=== PATIENT | male | born 1980 | race Caucasian/White ===

== ENCOUNTER 2016-03-07 02:07 | Emergency (ER) | payer OTHER ==
[2016-03-07 02:16] VITALS: BP 125/77; PULSE 98; RESP 16; TEMP 99.5
--- NOTE | 2016-03-07 02:39 | ED ---
General Adult HPI - General Chief complaint: Urogenital Stated complaint: lump on groin [facility] Time Seen by Provider: 03/07/16 02:18 Source: patient, RN notes reviewed Mode of arrival: ambulatory Limitations: no limitations - History of Present Illness Initial comments: Patient 35-year-old male who presents emergency room today with chief complaint of injury to the right groin. He does admit that he was at work just prior to arrival lifting a heavy foam roll. States felt instant pain when he went to move this in the right groin area. States having some discomfort in this area. Patient denies any other complaints or symptoms. Patient denies any recent fever, chills, shortness of breath, chest pain, back pain, abdominal pain, nausea or vomiting, numbness or tingling, dysuria or hematuria, constipation or diarrhea, headaches or visual changes, or any other complaints. - Related Data Previous Rx's Medication Instructions Recorded Ibuprofen [Motrin] 800 mg PO Q6HR PRN #30 tab 03/07/16 Allergies Allergy/AdvReac Type Severity Reaction Status Date / Time No Known Allergies Allergy Verified 03/07/16 02:16 Review of Systems ROS Statement: Those systems with pertinent positive or pertinent negative responses have been documented in the HPI. ROS Other: All systems not noted in ROS Statement are negative. Past Medical History Past Medical History: No Reported History History of Any Multi-Drug Resistant Organisms: None Reported Past Surgical History: No Surgical Hx Reported Past Psychological History: Anxiety Smoking Status: Current every day smoker Past Alcohol Use History: Daily, Heavy Past Drug Use History: None Reported General Exam - General Exam Comments Initial Comments: General: The patient is awake and alert, in no distress, and does not appear acutely ill. Eye: Pupils are equal, round and reactive to light, extra-ocular movements are intact. No nystagmus. There is normal conjunctiva bilaterally. No signs of icterus. Ears, nose, mouth and throat: There are moist mucous membranes and no oral lesions. Neck: The neck is supple, there is no tenderness or JVD. Cardiovascular: There is a regular rate and rhythm. No murmur, rub or gallop is appreciated. Respiratory: Lungs are clear to auscultation, respirations are non-labored, breath sounds are equal. No wheezes, stridor, rales, or rhonchi. Gastrointestinal: Soft, non-distended, non-tender abdomen without masses or organomegaly noted. There is no rebound or guarding present. No CVA tenderness. Bowel sounds are unremarkable. Musculoskeletal: Normal ROM, no tenderness. Strength 5/5. Sensation intact. Pulses equal bilaterally 2+. Neurological: A&O x 3. CN II-XII intact, There are no obvious motor or sensory deficits. Coordination appears grossly intact. Speech is normal. Skin: Skin is warm and dry and no rashes or lesions are noted. Psychiatric: Cooperative, appropriate mood & affect, normal judgment. : Patient does have small palpable bump located to the right inguinal area. Mild tenderness on exam. Limitations: no limitations Course Vital Signs 03/07/16 02:12 Temperature 99.5 F Pulse Rate 98 Respiratory 16 Rate Blood Pressure 125/77 O2 Sat by Pulse 99 Oximetry Medical Decision Making - Medical Decision Making Case discussed in detail with attending physician Dr. Muñoz. Patient will be referred to employee health. Advised no heavy lifting greater than 15 pounds. Advised return for any other concerns. Disposition Clinical Impression: Groin strain Disposition: HOME SELF-CARE Condition: Good Instructions: Groin Strain (ED) Additional Instructions: Please follow-up with employee health as discussed. Please no heavy lifting greater than 15 pounds. Please return to emergency room if any symptoms increase worsen or for other concerns. Prescriptions: Ibuprofen [Motrin] 800 mg PO Q6HR PRN #30 tab PRN Reason: Pain Time of Disposition: 02:38
== END 2016-03-07 02:57 | disposition home or self-care (01) ==
LOC: EC 02:07
DX: S39.011A Strain of muscle, fascia and tendon of abdomen, initial encounter (principal); F17.200 Nicotine dependence, unspecified, uncomplicated; X50.0XXA Overexertion from strenuous movement or load, initial encounter; Y99.0 Civilian activity done for income or pay
CPT/HCPCS: 99283

== ENCOUNTER → 2016-03-10 | Outpatient (CLI) | payer OTHER ==
--- NOTE | 2016-03-10 16:03 | XR ---
EXAMINATION TYPE: XR Hip Complete RT 2 views DATE OF EXAM: 03/10/2016 3:56 PM COMPARISON: NONE HISTORY: Pain There is no evidence of erosive change or acute fracture. Benign cysts are seen in the right femoral neck. Femoral head is somewhat nonspherical. Impression 1. No evidence of acute fracture or dislocation. Mild hypertrophic change of the acetabulum. This can occasionally be seen with femoral acetabular impingement. Correlate clinically.
== END | disposition home or self-care (01) ==
LOC: RADXRMAIN 15:32
PROVIDERS: ATTEND Emergency Medicine
DX: S73.101A Unspecified sprain of right hip, initial encounter (principal); M89.351 Hypertrophy of bone, right femur
CPT/HCPCS: 73502

== ENCOUNTER 2016-11-05 14:21 | Emergency (ER) | payer OTHER ==
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
--- NOTE | 2016-11-05 15:12 | XR ---
EXAMINATION TYPE: XR shoulder complete RT DATE OF EXAM: 11/05/2016 COMPARISON: NONE HISTORY: Pain TECHNIQUE: Three views are submitted. FINDINGS: The osseous structures are intact. There is no acute fracture or dislocation. The AC joint is maint ained. IMPRESSION: 1. No acute process.
--- NOTE | 2016-11-05 15:13 | XR ---
EXAMINATION TYPE: XR chest 1V DATE OF EXAM: 11/05/2016 COMPARISON: NONE HISTORY: Pain TECHNIQUE: Single frontal view of the chest is obtained. FINDINGS: There is no focal air space opacity, pleural effusion, or pneumothorax seen. The cardiac silhouette size is within normal limits. The osseous structures are intact. IMPRESSION: No acute process.
--- NOTE | 2016-11-05 15:17 | XR ---
EXAMINATION TYPE: XR hand complete RT DATE OF EXAM: 11/05/2016 COMPARISON: NONE HISTORY: Pain TECHNIQUE: Three views are submitted. FINDINGS: There is a displaced fracture involving the base first metacarpal. Remaining osseous structures intac t. IMPRESSION: 1. Displaced fracture base first metacarpal. Articular extension not excluded.
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
[2016-11-05] MEDS ORDERED: HYDROcodone/APAP 5-325MG 1 EACH TAB PO STA (15:31)
[2016-11-05 15:51] VITALS: BP 139/75; PULSE 49; RESP 18; TEMP 97.4
== END 2016-11-05 15:50 | disposition home or self-care (01) ==
LOC: EC 14:21
DX: S62.231A Other displaced fracture of base of first metacarpal bone, right hand, initial encounter for closed fracture (principal); S80.811A Abrasion, right lower leg, initial encounter; F17.200 Nicotine dependence, unspecified, uncomplicated; V49.50XA Passenger injured in collision with unspecified motor vehicles in traffic accident, initial encounter; Y92.410 Unspecified street and highway as the place of occurrence of the external cause
CPT/HCPCS: 29125; 70450; 71010; 72125; 99285

== ENCOUNTER 2016-11-13 17:59 | Inpatient (IN) | payer OTHER ==
[2016-11-13] MEDS ORDERED: RX INFO: IV CONTRAST WAS GIVEN 1 EACH MISC MISCELLANE PRN (18:30)
[2016-11-13] MEDS ORDERED: SODIUM CHLORIDE 0.9% 2,000 ML IV ONE (18:30)
[2016-11-13 19:06] LABS: Basophils % (A) 0 %; CH 29.9; CHCM 32.7; Eosinophils # (A) 0.1 k/uL (0-0.7); Eosinophils % (A) 1 %; HCT 34.3 % (39.0-53.0); HDW 2.39; HGB 11.3 gm/dL (13.0-17.5); Luc # (Auto) 0.04; Luc % (Auto) 0; Lymphocytes # (A) 0.4 k/uL (1.0-4.8); Lymphocytes % (A) 3 %; MCH 30.2 pg (25.0-35.0); MCHC 32.9 g/dL (31.0-37.0); MCV 91.7 fL (80.0-100.0); Mean Platelet Volume 7.5; Monocytes # (A) 0.6 k/uL (0-1.0); Monocytes % (A) 4 %; Neutrophils # (A) 11.9 k/uL (1.3-7.7); Neutrophils % (A) 91 %; RBC 3.74 m/uL (4.30-5.90); RDW 12.9 % (11.5-15.5); WBC (Perox) 13.04
[2016-11-13] MEDS ORDERED: ONDANSETRON 4 MG/2 ML VIAL IVP STA (19:12)
[2016-11-13] MEDS ORDERED: MORPHINE SULFATE 2 MG/ML SYRINGE IVP ONE (19:12)
[2016-11-13] MEDS ORDERED: LORazepam 2 MG/ML INJ IV STA (19:12)
[2016-11-13] MEDS ORDERED: VANCOMYCIN IV PER PHARMACY 1 EACH MISC MISCELLANE PRN (19:13)
[2016-11-13] MEDS ORDERED: PIPERACILLIN-TAZOBACTAM 3.375 GM in DEXTROSE/WATER 1 50ML.BAG IVPB STA (19:13)
[2016-11-13 19:16] LABS: ALT 35 U/L (21-72); AST 21 U/L (17-59); Alkaline Phosphatase 254 U/L (38-126); Anion Gap 12 mmol/L; Blood Urea Nitrogen 19 mg/dL (9-20); Calcium 8.3 mg/dL (8.4-10.2); Carbon Dioxide 20 mmol/L (22-30); Chloride 99 mmol/L (98-107); Glucose 124 mg/dL (74-99); Non-African American GFR(MDRD) >60 (>60 ml/min/1.73 sqM); Potassium 3.8 mmol/L (3.5-5.1); Sodium 131 mmol/L (137-145); Total Bilirubin 0.3 mg/dL (0.2-1.3); Total Protein 5.3 g/dL (6.3-8.2)
--- NOTE | 2016-11-13 19:27 | ED ---
Skin/Abscess/FB HPI - General Chief complaint: Skin/Abscess/Foreign Body Stated complaint: Shivering, Cyst on leg Time Seen by Provider: 11/13/16 18:23 Source: patient, RN notes reviewed Mode of arrival: wheelchair Limitations: no limitations - History of Present Illness Initial comments: 36-year-old male presents emergency Department chief complaint abscess, infection. Patient states it started only 3-4 days ago. Patient states that there is redness that extends down his left thigh. Patient states that he has had some skin infections past but this is most extensive. Patient states she's been having fever and chills. Patient states that it is very painful. Patient states it is open and draining at this time. Patient states that he has been taking some Bactrim at home over the last couple days. - Related Data Home Medications Medication Instructions Recorded Confirmed Ibuprofen [Motrin] 600 mg PO Q6HR PRN 11/13/16 11/13/16 Allergies Allergy/AdvReac Type Severity Reaction Status Date / Time No Known Allergies Allergy Verified 11/13/16 18:57 Review of Systems ROS Statement: Those systems with pertinent positive or pertinent negative responses have been documented in the HPI. ROS Other: All systems not noted in ROS Statement are negative. Past Medical History Past Medical History: No Reported History History of Any Multi-Drug Resistant Organisms: None Reported Past Surgical History: No Surgical Hx Reported Past Psychological History: Anxiety Smoking Status: Current every day smoker Past Alcohol Use History: None Reported Past Drug Use History: None Reported General Exam Limitations: no limitations General appearance: alert, in no apparent distress, anxious Head exam: Present: atraumatic, normocephalic, normal inspection Neck exam: Present: normal inspection, full ROM. Absent: tenderness, meningismus, lymphadenopathy Respiratory exam: Present: normal lung sounds bilaterally. Absent: respiratory distress, wheezes, rales, rhonchi, stridor Cardiovascular Exam: Present: normal rhythm, tachycardia, normal heart sounds. Absent: systolic murmur, diastolic murmur, rubs, gallop, clicks GI/Abdominal exam: Present: soft, normal bowel sounds. Absent: distended, tenderness, guarding, rebound, rigid Skin exam: Present: warm, dry, other (Extensive swelling, erythema is nonswollen left inguinal region with erythema extends down to the mid thigh) Course Vital Signs 11/13/16 11/13/16 11/13/16 18:01 19:04 19:52 Temperature 99.4 F 100.3 F H Pulse Rate 138 H 99 Respiratory 18 18 Rate Blood Pressure 159/77 109/58 O2 Sat by Pulse 97 93 L Oximetry Medical Decision Making - Lab Data Result diagrams: 11/13/16 18:50 11/13/16 18:50 Lab Results 11/13/16 11/13/16 11/13/16 Range/Units 18:50 18:50 18:50 WBC 13.0 H (3.8-10.6) k/uL RBC 3.74 L (4.30-5.90) m/uL Hgb 11.3 L (13.0-17.5) gm/dL Hct 34.3 L (39.0-53.0) % MCV 91.7 (80.0-100.0) fL MCH 30.2 (25.0-35.0) pg MCHC 32.9 (31.0-37.0) g/dL RDW 12.9 (11.5-15.5) % Plt Count 168 (150-450) k/uL Neutrophils % 91 % Lymphocytes % 3 % Monocytes % 4 % Eosinophils % 1 % Basophils % 0 % Neutrophils # 11.9 H (1.3-7.7) k/uL Lymphocytes # 0.4 L (1.0-4.8) k/uL Monocytes # 0.6 (0-1.0) k/uL Eosinophils # 0.1 (0-0.7) k/uL Basophils # 0.0 (0-0.2) k/uL Sodium 131 L (137-145) mmol/L Potassium 3.8 (3.5-5.1) mmol/L Chloride 99 (98-107) mmol/L Carbon Dioxide 20 L (22-30) mmol/L Anion Gap 12 mmol/L BUN 19 (9-20) mg/dL Creatinine 1.10 (0.66-1.25) mg/dL Est GFR (MDRD) Af Amer >60 (>60 ml/min/1.73 sqM) Est GFR (MDRD) Non-Af >60 (>60 ml/min/1.73 sqM) Glucose 124 H (74-99) mg/dL Plasma Lactic Acid Matt 3.0 H* (0.7-2.0) mmol/L Calcium 8.3 L (8.4-10.2) mg/dL Total Bilirubin 0.3 (0.2-1.3) mg/dL AST 21 (17-59) U/L ALT 35 (21-72) U/L Alkaline Phosphatase 254 H (38-126) U/L Total Protein 5.3 L (6.3-8.2) g/dL Albumin 2.5 L (3.5-5.0) g/dL Disposition Clinical Impression: Abscess of groin, left, Cellulitis of left leg, Failure of outpatient treatment Disposition: ADMITTED IP TO THIS HOSP Condition: Fair Referrals: None,Stated [Primary Care Provider] - 1-2 days
[2016-11-13] MEDS ORDERED: VANCOMYCIN 1,250 MG in SODIUM CHLORIDE 0.9% 250 ML IVPB STA (19:29)
--- NOTE | 2016-11-13 20:01 | CT ---
EXAMINATION TYPE: CT pelvis w con DATE OF EXAM: 11/13/2016 REFERENCE: NONE HISTORY: abscess/ pain HISTORY: Left inguinal pain, redness and swelling. Elevated WBC's. REFERENCE: NONE CT DLP: 707.00 mGy Automated exposure control for dose reduction was used. TECHNIQUE: Helical acquisition through the abdomen and pelvis was obtained following the oral ingesti on of without Oral Contrast and following intravenous administration of 100 mL of Omnipaque 300. The data was reformatted in axial, coronal and sagittal projections. FINDINGS: The gallbladder is contracted. Visualized visceral structures are otherwise unremarkable. Limited views of the large and small bowel are unremarkable. The bladder is unremarkable. There is induration of the proximal thigh on the left. There is a 7.0 x 4.9 x 1.4 cm fluid collection in the medial thigh on the left. Although no air is noted within it this would BE compatible with an abscess. There is a second fluid collection in the anterior thigh measuring 12 x 6.4 x 1.9 cm. This appears to communicate with the other fluid collection. No bony lesion is seen. IMPRESSION: LARGE FLUID COLLECTION INVOLVING THE ANTERIOR AND MEDIAL LEFT THIGH WITH SURROUNDING INDURATION AND S WELLING. THIS WOULD BE COMPATIBLE WITH A LARGE ABSCESS.
[2016-11-13] MEDS ORDERED: ONDANSETRON 4 MG/2 ML VIAL IVP PRN (20:03)
[2016-11-13] MEDS ORDERED: ACETAMINOPHEN TAB 325 MG TAB PO PRN (20:03)
[2016-11-13] MEDS ORDERED: MORPHINE SULFATE 4 MG/ML SYRINGE IV PRN (20:03)
[2016-11-13] MEDS ORDERED: NALOXONE 0.4 MG/ML 1 ML VIAL IV PRN (20:03)
[2016-11-13 20:24] LABS: Appearance,Urine Clear (Clear); Bilirubin,Urine Negative (Negative); Glucose,Urine (UA) Negative (Negative); Ketones,Urine Negative (Negative); Leukocyte Esterase,Urine Negative (Negative); Nitrite,Urine Negative (Negative); Protein,Urine Trace (Negative); Specific Gravity,Urine 1.025 (1.001-1.035); UA Billing (MACRO vs. MICRO) CHEM
[2016-11-13] MEDS: SODIUM CHLORIDE 0.9% 1,000 ML IV SCH (22:29)
[2016-11-13] MEDS: HYDROmorphone 1 MG/ML 1 ML SYRINGE IVP PRN (22:37)
[2016-11-13] MEDS: LORazepam 0.5 MG TAB PO PRN (22:38)
[2016-11-13] MEDS ORDERED: SODIUM CHLORIDE 0.9% 1,000 ML IV ONE (23:50)
[2016-11-14] MEDS: HYDROmorphone 1 MG/ML 1 ML SYRINGE IVP PRN ×7 (02:18→22:01)
[2016-11-14] MEDS: IBUPROFEN 400 MG TAB PO PRN ×2 (02:33→07:33)
[2016-11-14] MEDS ORDERED: VANCOMYCIN 1,250 MG in SODIUM CHLORIDE 0.9% 250 ML IVPB SCH (06:00)
[2016-11-14] MEDS: SODIUM CHLORIDE 0.9% 1,000 ML IV SCH (06:10)
[2016-11-14] MEDS: LORazepam 0.5 MG TAB PO PRN ×2 (09:42→20:32)
[2016-11-14 10:10] LABS: Anion Gap 9 mmol/L; Blood Urea Nitrogen 15 mg/dL (9-20); Calcium 8.3 mg/dL (8.4-10.2); Carbon Dioxide 19 mmol/L (22-30); Chloride 112 mmol/L (98-107); Glucose 96 mg/dL (74-99); Non-African American GFR(MDRD) >60 (>60 ml/min/1.73 sqM); Sodium 140 mmol/L (137-145)
[2016-11-14 10:17] LABS: Potassium 4.2 mmol/L (3.5-5.1)
[2016-11-14] MEDS: SODIUM CHLORIDE 0.45% 1,000 ML IV SCH (14:09)
[2016-11-14] MEDS: KETOROLAC 30 MG/ML 1 ML VIAL IVP PRN ×2 (14:09→20:32)
[2016-11-14] MEDS: FAMOTIDINE 20 MG TAB PO SCH ×2 (14:52→20:38)
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
[2016-11-14] MEDS ORDERED: IV FLUID CONTINUATION 1,000 ML IV ONE ×2 (15:50)
[2016-11-14] MEDS: VANCOMYCIN 1,250 MG in SODIUM CHLORIDE 0.9% 250 ML IVPB SCH ×2 (16:05→17:16)
[2016-11-14] MEDS ORDERED: MIDAZOLAM 2 MG/2 ML VIAL IVP ONE ×2 (16:34→18:20)
[2016-11-14] MEDS ORDERED: ONDANSETRON 4 MG/2 ML VIAL ONE (17:19)
[2016-11-14] MEDS ORDERED: MIDAZOLAM 2 MG/2 ML VIAL ONE (17:19)
[2016-11-14] MEDS ORDERED: fentaNYL (PF) 50 MCG/ML 2 ML AMP ONE (17:19)
[2016-11-14] MEDS ORDERED: MORPHINE SULFATE 10 MG/ML SYRINGE ONE (17:19)
[2016-11-14] MEDS ORDERED: MEPERIDINE 50 MG/ML SYRINGE ONE (17:19)
[2016-11-14] MEDS ORDERED: LIDOCAINE 1% INJ 10MG/ML (20 ML MDV) ONE (17:19)
[2016-11-14] MEDS ORDERED: PROPOFOL 10 MG/ML 20 ML VIAL IV ONE (17:19)
[2016-11-14] MEDS ORDERED: LACTATED RINGERS 1,000 ML IV ONE (18:00)
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
[2016-11-15] MEDS: SODIUM CHLORIDE 0.45% 1,000 ML IV SCH ×3 (01:00→20:09)
[2016-11-15] MEDS: VANCOMYCIN 1,250 MG in SODIUM CHLORIDE 0.9% 250 ML IVPB SCH ×4 (01:00→22:27)
[2016-11-15] MEDS: HYDROmorphone 1 MG/ML 1 ML SYRINGE IVP PRN ×7 (01:03→21:01)
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
--- NOTE | 2016-11-15 01:12 | P.OP ---
Date of Procedure: 11/14/16 Preoperative Diagnosis: Left thigh and right axillary abscess Postoperative Diagnosis: Same Procedure(s) Performed: Incision and drainage of left thigh and right axillary abscess Anesthesia: MIKIE Surgeon: Elan Garland Pathology: other (Cultures were sent) Condition: stable Disposition: floor Indications for Procedure: Patient has multiple abscesses which required incision and drainage Operative Findings: Large amount of purulent fluid and left thigh and right axilla Description of Procedure: Patient was brought to the operative suite remained in supine position and underwent anesthesia per Department of anesthesia he was then prepped and draped in usual sterile fashion timeout was performed correct patient and correct procedure correct site was verified. A 8 cm incision was then made directly over the area of fluctuance in his anterior left thigh a large amount of present fluid was excised approximately 300 mL. Cultures were taken and sent. This area was then copiously irrigated and packed with Kerlix gauze. Hemostasis was achieved. Attention was turned to the right axillary abscess which was incised in a similar fashion with an incision 3 cm. 50 mL of brown fluid was expressed. All loculations were broken up. In the wound was packed with gauze. Sterile dressings were applied patient tolerated the procedure well there is no apparent complications
[2016-11-15] MEDS: KETOROLAC 30 MG/ML 1 ML VIAL IVP PRN ×3 (02:32→20:09)
[2016-11-15] MEDS ORDERED: VANCOMYCIN TROUGH DUE 1 EACH MISC MISCELLANE ONE (06:00)
[2016-11-15] MEDS: FAMOTIDINE 20 MG TAB PO SCH ×2 (07:54→21:01)
[2016-11-15 08:20] LABS: CH 29.4; CHCM 31.9; HCT 31.9 % (39.0-53.0); HDW 2.45; HGB 10.4 gm/dL (13.0-17.5); MCH 30.1 pg (25.0-35.0); MCHC 32.5 g/dL (31.0-37.0); MCV 92.5 fL (80.0-100.0); Mean Platelet Volume 8.3; RBC 3.45 m/uL (4.30-5.90); RDW 13.1 % (11.5-15.5); WBC 13.6 k/uL (3.8-10.6)
[2016-11-15 09:29] LABS: Anion Gap 12 mmol/L; Calcium 8.3 mg/dL (8.4-10.2); Carbon Dioxide 17 mmol/L (22-30); Chloride 113 mmol/L (98-107); Glucose 91 mg/dL (74-99); Non-African American GFR(MDRD) >60 (>60 ml/min/1.73 sqM); Sodium 142 mmol/L (137-145)
[2016-11-15 09:35] LABS: Blood Urea Nitrogen 15 mg/dL (9-20); Potassium 5.3 mmol/L (3.5-5.1)
--- NOTE | 2016-11-15 12:24 | P.PN ---
Subjective Patient was admitted for abscess in the left thigh area as well as right axillary abscess patient had a large abscess in the left thigh and inguinal area which was drained wound cultures are showing gram-positive cocci patient pain significantly improved. Constitutional: Denied any fatigue denied any fever. Cardio vascular: denied any chest pain, palpitations Gastrointestinal denied any nausea vomiting Pulmonary: Denied any shortness of breath cough Neurologic denied any new focal deficits Objective - Vital Signs Vital signs: Vital Signs Temp 98.4 F 11/15/16 07:00 Pulse 72 11/15/16 07:00 Resp 16 11/15/16 07:00 BP 118/76 11/15/16 07:00 Pulse Ox 98 11/15/16 07:00 Intake & Output 11/14/16 11/15/16 11/15/16 18:59 06:59 18:59 Intake Total 1125 300 Output Total 950 1050 Balance 175 -750 Intake: IV 1125 Oral 300 Output: Urine 900 1050 Estimated Blood Loss 50 Other: Voiding Method Urinal # Voids 2 - Exam GENERAL: The patient is alert and oriented x3, not in any acute distress. Well developed, well nourished. HEENT: Pupils are round and equally reacting to light. EOMI. No scleral icterus. No conjunctival pallor. Normocephalic, atraumatic. No pharyngeal erythema. No thyromegaly. CARDIOVASCULAR: S1 and S2 present. No murmurs, rubs, or gallops. PULMONARY: Chest is clear to auscultation, no wheezing or crackles. ABDOMEN: Soft, nontender, nondistended, normoactive bowel sounds. No palpable organomegaly. MUSCULOSKELETAL: No joint swelling or deformity. EXTREMITIES: No cyanosis, clubbing, or pedal edema. NEUROLOGICAL: Gross neurological examination did not reveal any focal deficits. SKIN: She and is status post drainage of left inguinal and thigh area and right axillary area - Labs CBC & Chem 7: 11/15/16 07:59 11/15/16 07:59 Labs: Abnormal Lab Results - Last 24 Hours (Table) 11/15/16 11/15/16 Range/Units 07:59 07:59 WBC 13.6 H (3.8-10.6) k/uL RBC 3.45 L (4.30-5.90) m/uL Hgb 10.4 L (13.0-17.5) gm/dL Hct 31.9 L (39.0-53.0) % Potassium 5.3 H (3.5-5.1) mmol/L Chloride 113 H (98-107) mmol/L Carbon Dioxide 17 L (22-30) mmol/L Calcium 8.3 L (8.4-10.2) mg/dL Microbiology - Last 24 Hours (Table) 11/14/16 17:58 Gram Stain - Preliminary Axilla - Right Wound Culture - Preliminary 11/14/16 17:58 Gram Stain - Preliminary Thigh - Left Wound Culture - Preliminary 11/14/16 17:58 Anaerobic Culture - Preliminary Thigh - Left 11/14/16 17:58 Anaerobic Culture - Preliminary Axilla - Right 11/13/16 20:13 Urine Culture - Final Urine,Voided 11/13/16 18:50 Blood Culture - Preliminary Blood No Growth after 24 hours Assessment and Plan Plan: #1 sepsis, severe: Secondary to left thigh abscess and right axillary abscess for which patient will need incision and drainages continue with IV vancomycin IV fluids. Patient is status post incision and drainage #2 hypovolemic hyponatremia: Secondary to sepsis and patient will be continued on IV fluids. #3 acute renal failure: Fairly stable at this point of time continue with IV fluids #4 hyperchloremia due to IV normal saline switched to half-normal saline.
--- NOTE | 2016-11-15 14:39 | P.PN ---
Subjective Progress Note Date: 11/15/16 Principal diagnosis: Abscess left anterior thigh and right axilla Patient is markedly improved today. He states the pain is much better. He has no other complaints Objective - Vital Signs Vital signs: Vital Signs Temp 98.4 F 11/15/16 07:00 Pulse 72 11/15/16 07:00 Resp 16 11/15/16 07:00 BP 118/76 11/15/16 07:00 Pulse Ox 98 11/15/16 07:00 Intake & Output 11/14/16 11/15/16 11/15/16 18:59 06:59 18:59 Intake Total 1125 300 Output Total 950 1050 Balance 175 -750 Intake: IV 1125 Oral 300 Output: Urine 900 1050 Estimated Blood Loss 50 Other: Voiding Method Urinal # Voids 2 - Constitutional General appearance: Present: cooperative - EENT Eyes: Present: EOMI - Respiratory Respiratory: bilateral: CTA - Cardiovascular Rhythm: regular - Gastrointestinal Gastrointestinal Comment(s): Soft nontender nondistended - Integumentary Integumentary Comment(s): Left anterior thigh erythema markedly improved wound packed with Kerlix. Right axilla erythema improved wound packed with gauze. - Psychiatric Psychiatric: Present: A&O x's 3 - Labs CBC & Chem 7: 11/15/16 07:59 11/15/16 07:59 Labs: Abnormal Lab Results - Last 24 Hours (Table) 11/15/16 11/15/16 Range/Units 07:59 07:59 WBC 13.6 H (3.8-10.6) k/uL RBC 3.45 L (4.30-5.90) m/uL Hgb 10.4 L (13.0-17.5) gm/dL Hct 31.9 L (39.0-53.0) % Potassium 5.3 H (3.5-5.1) mmol/L Chloride 113 H (98-107) mmol/L Carbon Dioxide 17 L (22-30) mmol/L Calcium 8.3 L (8.4-10.2) mg/dL Microbiology - Last 24 Hours (Table) 11/14/16 17:58 Gram Stain - Preliminary Axilla - Right Wound Culture - Preliminary 11/14/16 17:58 Gram Stain - Preliminary Thigh - Left Wound Culture - Preliminary 11/14/16 17:58 Anaerobic Culture - Preliminary Thigh - Left 11/14/16 17:58 Anaerobic Culture - Preliminary Axilla - Right 11/13/16 20:13 Urine Culture - Final Urine,Voided 11/13/16 18:50 Blood Culture - Preliminary Blood No Growth after 24 hours Assessment and Plan (1) Abscess of right axilla Status: Acute (2) Abscess of groin, left Status: Acute (3) Cellulitis of left leg Status: Acute
[2016-11-16] MEDS: LORazepam 0.5 MG TAB PO PRN ×2 (02:21→20:50)
[2016-11-16] MEDS: HYDROmorphone 1 MG/ML 1 ML SYRINGE IVP PRN ×8 (02:21→23:06)
[2016-11-16] MEDS: SODIUM CHLORIDE 0.45% 1,000 ML IV SCH (05:55)
[2016-11-16] MEDS ORDERED: VANCOMYCIN TROUGH DUE 1 EACH MISC MISCELLANE ONE (06:00)
[2016-11-16] MEDS: VANCOMYCIN 1,250 MG in SODIUM CHLORIDE 0.9% 250 ML IVPB SCH (07:07)
[2016-11-16 08:01] LABS: CH 29.5; CHCM 32.6; HCT 32.6 % (39.0-53.0); HDW 2.41; HGB 10.8 gm/dL (13.0-17.5); MCH 30.1 pg (25.0-35.0); MCHC 33.1 g/dL (31.0-37.0); MCV 90.7 fL (80.0-100.0); Mean Platelet Volume 8.2; RBC 3.59 m/uL (4.30-5.90); WBC 9.6 k/uL (3.8-10.6)
[2016-11-16] MEDS: FAMOTIDINE 20 MG TAB PO SCH ×2 (08:11→20:55)
[2016-11-16] MEDS: KETOROLAC 30 MG/ML 1 ML VIAL IVP PRN ×2 (08:12→17:06)
[2016-11-16 08:22] LABS: Anion Gap 9 mmol/L; Blood Urea Nitrogen 17 mg/dL (9-20); Calcium 8.2 mg/dL (8.4-10.2); Carbon Dioxide 19 mmol/L (22-30); Chloride 110 mmol/L (98-107); Glucose 112 mg/dL (74-99); Non-African American GFR(MDRD) >60 (>60 ml/min/1.73 sqM); Sodium 138 mmol/L (137-145)
--- NOTE | 2016-11-16 11:57 | P.PN ---
Subjective Patient was admitted for abscess in the left thigh area as well as right axillary abscess patient had a large abscess in the left thigh and inguinal area which was drained wound cultures are showing gram-positive cocci patient pain significantly improved. 11/16/2016 patient pain is much better feeling well awaiting wound cultures, wanted to go home Constitutional: Denied any fatigue denied any fever. Cardio vascular: denied any chest pain, palpitations Gastrointestinal denied any nausea vomiting Pulmonary: Denied any shortness of breath cough Neurologic denied any new focal deficits Objective - Vital Signs Vital signs: Vital Signs Temp 98.5 F 11/16/16 07:00 Pulse 64 11/16/16 07:00 Resp 16 11/16/16 07:00 BP 130/80 11/16/16 07:00 Pulse Ox 99 11/16/16 07:00 Intake & Output 11/15/16 11/16/16 11/16/16 18:59 06:59 18:59 Intake Total 1050 Output Total 600 Balance 1050 -600 Intake: IV 1050 Sodium Chloride 0.45% 1, 800 000 ml @ 100 mls/hr IV . Q10H [facility] Rx#:[id number] Vancomycin 1,250 mg In 250 Sodium Chloride 0.9% 250 ml @ 125 mls/hr IVPB Q8H [facility] Rx#:[id number] Output: Urine 600 Other: Voiding Method Urinal # Voids 1 1 - Exam GENERAL: The patient is alert and oriented x3, not in any acute distress. Well developed, well nourished. HEENT: Pupils are round and equally reacting to light. EOMI. No scleral icterus. No conjunctival pallor. Normocephalic, atraumatic. No pharyngeal erythema. No thyromegaly. CARDIOVASCULAR: S1 and S2 present. No murmurs, rubs, or gallops. PULMONARY: Chest is clear to auscultation, no wheezing or crackles. ABDOMEN: Soft, nontender, nondistended, normoactive bowel sounds. No palpable organomegaly. MUSCULOSKELETAL: No joint swelling or deformity. EXTREMITIES: No cyanosis, clubbing, or pedal edema. NEUROLOGICAL: Gross neurological examination did not reveal any focal deficits. SKIN: She and is status post drainage of left inguinal and thigh area and right axillary area - Labs CBC & Chem 7: 11/16/16 07:05 11/16/16 07:05 Labs: Abnormal Lab Results - Last 24 Hours (Table) 11/16/16 11/16/16 Range/Units 07:05 07:05 RBC 3.59 L (4.30-5.90) m/uL Hgb 10.8 L (13.0-17.5) gm/dL Hct 32.6 L (39.0-53.0) % Chloride 110 H (98-107) mmol/L Carbon Dioxide 19 L (22-30) mmol/L Glucose 112 H (74-99) mg/dL Calcium 8.2 L (8.4-10.2) mg/dL Microbiology - Last 24 Hours (Table) 11/14/16 17:58 Gram Stain - Preliminary Axilla - Right Wound Culture - Preliminary Presumptive MRSA 11/14/16 17:58 Gram Stain - Preliminary Thigh - Left Wound Culture - Preliminary Presumptive MRSA 11/13/16 18:50 Blood Culture - Preliminary Blood No Growth after 48 hours Assessment and Plan Plan: #1 sepsis, severe: Secondary to left thigh abscess and right axillary abscess for which patient will need incision and drainages continue with IV vancomycin IV fluids. Patient is status post incision and drainage. Leukocytosis improved #2 hypovolemic hyponatremia: Secondary to sepsis improved now probably IV fluids can be discontinued secondary to hyperchloremia #3 acute renal failure: Fairly stable at this point of time continue with IV fluids #4 hyperchloremia due to IV fluids which are being discontinued at this time. #5 hyperkalemia due to hemolysis which resolved at this point of time
--- NOTE | 2016-11-16 13:58 | P.PN ---
Subjective Progress Note Date: 11/16/16 Principal diagnosis: Abscess left anterior thigh and right axilla Patient is feeling better. He states the pain is much better. He has no other complaints Objective - Vital Signs Vital signs: Vital Signs Temp 98.5 F 11/16/16 07:00 Pulse 64 11/16/16 07:00 Resp 16 11/16/16 07:00 BP 130/80 11/16/16 07:00 Pulse Ox 99 11/16/16 07:00 Intake & Output 11/15/16 11/16/16 11/16/16 18:59 06:59 18:59 Intake Total 1050 Output Total 600 Balance 1050 -600 Intake: IV 1050 Sodium Chloride 0.45% 1, 800 000 ml @ 100 mls/hr IV . Q10H [facility] Rx#:[id number] Vancomycin 1,250 mg In 250 Sodium Chloride 0.9% 250 ml @ 125 mls/hr IVPB Q8H [facility] Rx#:[id number] Output: Urine 600 Other: Voiding Method Urinal # Voids 1 1 - Constitutional General appearance: Present: cooperative - Respiratory Details: Nonlabored breathing - Cardiovascular Rhythm: regular - Gastrointestinal Gastrointestinal Comment(s): Soft nontender nondistended - Integumentary Integumentary Comment(s): Left anterior thigh wound is packed there is still a small amount of erythema Howards improved. draining purulent fluid Right axilla improved erythema draining some purulent fluid - Psychiatric Psychiatric: Present: A&O x's 3 - Labs CBC & Chem 7: 11/16/16 07:05 11/16/16 07:05 Labs: Abnormal Lab Results - Last 24 Hours (Table) 11/16/16 11/16/16 Range/Units 07:05 07:05 RBC 3.59 L (4.30-5.90) m/uL Hgb 10.8 L (13.0-17.5) gm/dL Hct 32.6 L (39.0-53.0) % Chloride 110 H (98-107) mmol/L Carbon Dioxide 19 L (22-30) mmol/L Glucose 112 H (74-99) mg/dL Calcium 8.2 L (8.4-10.2) mg/dL Microbiology - Last 24 Hours (Table) 11/14/16 17:58 Gram Stain - Preliminary Axilla - Right Wound Culture - Preliminary Presumptive MRSA 11/14/16 17:58 Gram Stain - Preliminary Thigh - Left Wound Culture - Preliminary Presumptive MRSA 11/13/16 18:50 Blood Culture - Preliminary Blood No Growth after 48 hours Assessment and Plan (1) Abscess of right axilla Status: Acute (2) Abscess of groin, left Status: Acute (3) Cellulitis of left leg Status: Acute Plan: Patient is doing well he may shower remove packing in the shower and allow the incisions to drain. Continue wet to dry dressings. Continue antibiotics per ID and medical management per primary. Erythema is improved and the wounds are still draining.
[2016-11-16] MEDS: VANCOMYCIN 1,000 MG in SODIUM CHLORIDE 0.9% 250 ML IVPB SCH ×2 (14:06→23:09)
[2016-11-17] MEDS: HYDROmorphone 1 MG/ML 1 ML SYRINGE IVP PRN ×8 (02:06→23:18)
[2016-11-17] MEDS: LORazepam 0.5 MG TAB PO PRN ×2 (04:25→11:41)
--- NOTE | 2016-11-17 07:00 | PN ---
PROGRESS NOTE DATE OF SERVICE: 11/16/2016. REASON FOR FOLLOW UP: Left thigh, right axillary MRSA abscess. INTERVAL HISTORY: The patient is afebrile, has been breathing comfortably. Denies any chest pain or shortness of breath or abdominal pain. Pain to the left thigh area is currently controlled. EXAMINATION: Blood pressure 163/82 with a pulse of 75, temperature of 98.2. He is 98% on room air. General description is a middle-aged male lying in bed in no distress. Respiratory system unlabored breathing, clear to auscultation anteriorly. Heart S1, S2. Regular rate and rhythm. No tenderness. Left thigh wound is currently dressed up. No obvious drainage on the dressing. LABS: White count normalized to 9.6 with a BUN of 17, creatinine 0.80. Vancomycin trough therapeutic wound culture with MRSA. DIAGNOSTIC IMPRESSION AND PLAN: Patient with Methicillin-resistant Staphylococcus aureus left thigh and right axillary abscess status post drainage of this abscess. The patient will continue vancomycin, pharmacy to dose. Depending on the clinical response will determine discharge antibiotics. Continue supportive care. MMODL / IJN: [id number] / MTDD
[2016-11-17] MEDS: FAMOTIDINE 20 MG TAB PO SCH ×2 (07:50→22:10)
[2016-11-17] MEDS: VANCOMYCIN 1,000 MG in SODIUM CHLORIDE 0.9% 250 ML IVPB SCH ×2 (07:54→14:52)
[2016-11-17 10:01] LABS: Anion Gap 10 mmol/L; Blood Urea Nitrogen 18 mg/dL (9-20); Calcium 8.2 mg/dL (8.4-10.2); Carbon Dioxide 20 mmol/L (22-30); Chloride 113 mmol/L (98-107); Glucose 116 mg/dL (74-99); Non-African American GFR(MDRD) >60 (>60 ml/min/1.73 sqM); Sodium 143 mmol/L (137-145)
[2016-11-17 10:16] LABS: Potassium 6.7 mmol/L (3.5-5.1)
[2016-11-17] MEDS: KETOROLAC 30 MG/ML 1 ML VIAL IVP PRN (11:40)
--- NOTE | 2016-11-17 15:43 | P.PN ---
Subjective Patient was admitted for abscess in the left thigh area as well as right axillary abscess patient had a large abscess in the left thigh and inguinal area which was drained wound cultures are showing gram-positive cocci patient pain significantly improved. 11/16/2016 patient pain is much better feeling well awaiting wound cultures, wanted to go home 11/17/2016 Infectious disease is recommending 2 more days of IV antibiotics. Patient's frequency of hydromorphone will be changed to every 4 probably try to avoid this medication as much as possible. Constitutional: Denied any fatigue denied any fever. Cardio vascular: denied any chest pain, palpitations Gastrointestinal denied any nausea vomiting Pulmonary: Denied any shortness of breath cough Neurologic denied any new focal deficits Objective - Vital Signs Vital signs: Vital Signs Temp 99.1 F 11/17/16 15:00 Pulse 61 11/17/16 15:00 Resp 16 11/17/16 15:00 BP 133/73 11/17/16 15:00 Pulse Ox 97 11/17/16 15:00 Intake & Output 11/16/16 11/17/16 11/17/16 18:59 06:59 18:59 Intake Total 950 Output Total 400 525 Balance 950 -400 -525 Intake: IV 950 Sodium Chloride 0.45% 1, 700 000 ml @ 100 mls/hr IV . Q10H [facility] Rx#:[id number] Vancomycin 1,250 mg In 250 Sodium Chloride 0.9% 250 ml @ 125 mls/hr IVPB Q8H [facility] Rx#:[id number] Output: Urine 400 525 Other: # Voids 1 1 2 # Bowel Movements 0 - Exam GENERAL: The patient is alert and oriented x3, not in any acute distress. Well developed, well nourished. HEENT: Pupils are round and equally reacting to light. EOMI. No scleral icterus. No conjunctival pallor. Normocephalic, atraumatic. No pharyngeal erythema. No thyromegaly. CARDIOVASCULAR: S1 and S2 present. No murmurs, rubs, or gallops. PULMONARY: Chest is clear to auscultation, no wheezing or crackles. ABDOMEN: Soft, nontender, nondistended, normoactive bowel sounds. No palpable organomegaly. MUSCULOSKELETAL: No joint swelling or deformity. EXTREMITIES: No cyanosis, clubbing, or pedal edema. NEUROLOGICAL: Gross neurological examination did not reveal any focal deficits. SKIN: She and is status post drainage of left inguinal and thigh area and right axillary area - Labs CBC & Chem 7: 11/16/16 07:05 11/17/16 12:05 Labs: Abnormal Lab Results - Last 24 Hours (Table) 11/17/16 11/17/16 Range/Units 08:52 12:05 Potassium 6.7 H* 6.3 H* (3.5-5.1) mmol/L Chloride 113 H (98-107) mmol/L Carbon Dioxide 20 L (22-30) mmol/L Glucose 116 H (74-99) mg/dL Calcium 8.2 L (8.4-10.2) mg/dL Microbiology - Last 24 Hours (Table) 11/14/16 17:58 Anaerobic Culture - Preliminary Thigh - Left 11/14/16 17:58 Anaerobic Culture - Preliminary Axilla - Right 11/13/16 18:50 Blood Culture - Preliminary Blood No Growth after 72 hours 11/14/16 17:58 Gram Stain - Final Axilla - Right Wound Culture - Final Methicillin resist S. aureus 11/14/16 17:58 Gram Stain - Final Thigh - Left Wound Culture - Final Methicillin resist S. aureus Assessment and Plan Plan: #1 sepsis, severe: Secondary to left thigh abscess and right axillary abscess for which patient will need incision and drainages continue with IV vancomycin IV fluids. Patient is status post incision and drainage. Leukocytosis improved #2 hypovolemic hyponatremia: Secondary to sepsis improved now probably IV fluids can be discontinued secondary to hyperchloremia #3 acute renal failure: Improved now #4 hyperchloremia due to IV fluids which are being discontinued at this time. #5 hyperkalemia due to hemolysis repeat basic metabolic profile tomorrow
--- NOTE | 2016-11-17 18:04 | P.PN ---
Subjective Progress Note Date: 11/17/16 Principal diagnosis: Abscess left anterior thigh and right axilla Improved today patient feeling well no complaints Objective - Vital Signs Vital signs: Vital Signs Temp 99.1 F 11/17/16 15:00 Pulse 61 11/17/16 15:00 Resp 16 11/17/16 15:00 BP 133/73 11/17/16 15:00 Pulse Ox 97 11/17/16 15:00 Intake & Output 11/16/16 11/17/16 11/17/16 18:59 06:59 18:59 Intake Total 950 Output Total 400 525 Balance 950 -400 -525 Intake: IV 950 Sodium Chloride 0.45% 1, 700 000 ml @ 100 mls/hr IV . Q10H [facility] Rx#:[id number] Vancomycin 1,250 mg In 250 Sodium Chloride 0.9% 250 ml @ 125 mls/hr IVPB Q8H [facility] Rx#:[id number] Output: Urine 400 525 Other: # Voids 1 1 2 # Bowel Movements 0 - Constitutional General appearance: Present: cooperative - Respiratory Details: Nonlabored breathing - Cardiovascular Rhythm: regular - Gastrointestinal Gastrointestinal Comment(s): Soft nontender nondistended - Integumentary Integumentary Comment(s): Left thigh wound open and draining small amount of fluid erythema still improved , right axilla wound open draining small amount of fluid erythema resolved - Psychiatric Psychiatric: Present: A&O x's 3 - Labs CBC & Chem 7: 11/16/16 07:05 11/17/16 12:05 Labs: Abnormal Lab Results - Last 24 Hours (Table) 11/17/16 11/17/16 Range/Units 08:52 12:05 Potassium 6.7 H* 6.3 H* (3.5-5.1) mmol/L Chloride 113 H (98-107) mmol/L Carbon Dioxide 20 L (22-30) mmol/L Glucose 116 H (74-99) mg/dL Calcium 8.2 L (8.4-10.2) mg/dL Microbiology - Last 24 Hours (Table) 11/14/16 17:58 Anaerobic Culture - Preliminary Thigh - Left 11/14/16 17:58 Anaerobic Culture - Preliminary Axilla - Right 11/13/16 18:50 Blood Culture - Preliminary Blood No Growth after 72 hours 11/14/16 17:58 Gram Stain - Final Axilla - Right Wound Culture - Final Methicillin resist S. aureus 11/14/16 17:58 Gram Stain - Final Thigh - Left Wound Culture - Final Methicillin resist S. aureus Assessment and Plan (1) Abscess of right axilla Status: Acute (2) Abscess of groin, left Status: Acute (3) Cellulitis of left leg Status: Acute Plan: Patient is doing better today he is surgically stable with no further plans for surgical intervention. Continue wet-to-dry packings should there be any concern or questions please feel free to contact me thank you for allowing me to participate in this patient's care
[2016-11-17] MEDS: HYDROcodone/APAP 7.5-325MG 1 EACH TAB PO PRN (20:12)
[2016-11-18] MEDS: VANCOMYCIN 1,000 MG in SODIUM CHLORIDE 0.9% 250 ML IVPB SCH ×4 (01:06→22:27)
[2016-11-18] MEDS: HYDROcodone/APAP 7.5-325MG 1 EACH TAB PO PRN ×4 (01:40→21:05)
[2016-11-18] MEDS: LORazepam 0.5 MG TAB PO PRN ×2 (01:42→22:28)
[2016-11-18] MEDS: HYDROmorphone 1 MG/ML 1 ML SYRINGE IVP PRN ×5 (03:24→22:27)
--- NOTE | 2016-11-18 06:03 | PN ---
PROGRESS NOTE DATE OF SERVICE: 11/17/2016. REASON FOR FOLLOWUP: Left groin and right axilla MRSA abscess. INTERVAL HISTORY: The patient is afebrile. He is breathing comfortably. Still complaining of pain to the left thigh area. The patient denies any chest pain or shortness of breath or cough and no diarrhea. PHYSICAL EXAMINATION: Blood pressure is 133/73 with a pulse of 64, temperature of 99.1. He is 97% on room air. General description is a middle aged male, lying in bed, in no distress. RESPIRATORY SYSTEM: Unlabored breathing. Clear to auscultation. HEART: S1, S2. Regular rate and rhythm. ABDOMEN: Soft, no tenderness. LEFT THIGH: Surrounding swelling and redness have improved. No induration was noted. LABS: Potassium was elevated and creatinine 0.94. Wound culture with MRSA. Blood culture has been negative. DIAGNOSTIC IMPRESSION AND PLAN: Patient with left thigh abscess from MRSA also right axillary abscess status post drainage of both. The patient will continue vancomycin. Will keep the patient on vancomycin for another or two and if he does have overall improvement, hopefully, will be able to finish therapy with oral Bactrim if no further problem with hyperkalemia. Local wound care with the Aquacel Silver packing. MMODL / IJN: [id number] /
[2016-11-18] MEDS: FAMOTIDINE 20 MG TAB PO SCH ×2 (07:54→21:09)
[2016-11-18 09:11] LABS: ALT 24 U/L (21-72); AST 30 U/L (17-59); Alkaline Phosphatase 97 U/L (38-126); Anion Gap 9 mmol/L; Blood Urea Nitrogen 15 mg/dL (9-20); Calcium 8.1 mg/dL (8.4-10.2); Carbon Dioxide 24 mmol/L (22-30); Chloride 108 mmol/L (98-107); Glucose 125 mg/dL (74-99); Non-African American GFR(MDRD) >60 (>60 ml/min/1.73 sqM); Sodium 141 mmol/L (137-145); Total Bilirubin 0.2 mg/dL (0.2-1.3); Total Protein 5.4 g/dL (6.3-8.2)
[2016-11-18 09:18] LABS: Potassium 4.6 mmol/L (3.5-5.1)
--- NOTE | 2016-11-18 16:57 | P.PN ---
Subjective Patient was admitted for abscess in the left thigh area as well as right axillary abscess patient had a large abscess in the left thigh and inguinal area which was drained wound cultures are showing gram-positive cocci patient pain significantly improved. 11/16/2016 patient pain is much better feeling well awaiting wound cultures, wanted to go home 11/17/2016 Infectious disease is recommending 2 more days of IV antibiotics. Patient's frequency of hydromorphone will be changed to every 4 probably try to avoid this medication as much as possible. 11/18/2016 No overnight events patient is clinically doing well will be discharged tomorrow on oral antibiotics. Constitutional: Denied any fatigue denied any fever. Cardio vascular: denied any chest pain, palpitations Gastrointestinal denied any nausea vomiting Pulmonary: Denied any shortness of breath cough Neurologic denied any new focal deficits Objective - Vital Signs Vital signs: Vital Signs Temp 98.6 F 11/18/16 15:00 Pulse 61 11/18/16 15:00 Resp 16 11/18/16 15:00 BP 136/73 11/18/16 15:00 Pulse Ox 98 11/18/16 15:00 Intake & Output 11/17/16 11/18/16 11/18/16 18:59 06:59 18:59 Output Total 525 1500 Balance -525 -1500 Output: Urine 525 1500 Other: # Voids 2 1 3 - Exam GENERAL: The patient is alert and oriented x3, not in any acute distress. Well developed, well nourished. HEENT: Pupils are round and equally reacting to light. EOMI. No scleral icterus. No conjunctival pallor. Normocephalic, atraumatic. No pharyngeal erythema. No thyromegaly. CARDIOVASCULAR: S1 and S2 present. No murmurs, rubs, or gallops. PULMONARY: Chest is clear to auscultation, no wheezing or crackles. ABDOMEN: Soft, nontender, nondistended, normoactive bowel sounds. No palpable organomegaly. MUSCULOSKELETAL: No joint swelling or deformity. EXTREMITIES: No cyanosis, clubbing, or pedal edema. NEUROLOGICAL: Gross neurological examination did not reveal any focal deficits. SKIN: She and is status post drainage of left inguinal and thigh area and right axillary area - Labs CBC & Chem 7: 11/16/16 07:05 11/18/16 08:10 Labs: Abnormal Lab Results - Last 24 Hours (Table) 11/18/16 Range/Units 08:10 Chloride 108 H (98-107) mmol/L Glucose 125 H (74-99) mg/dL Calcium 8.1 L (8.4-10.2) mg/dL Total Protein 5.4 L (6.3-8.2) g/dL Albumin 2.4 L (3.5-5.0) g/dL Microbiology - Last 24 Hours (Table) 11/13/16 18:50 Blood Culture - Preliminary Blood No Growth after 96 hours Assessment and Plan Plan: #1 sepsis, severe: Secondary to left thigh abscess and right axillary abscess for which patient will need incision and drainages continue with IV vancomycin IV fluids. Patient is status post incision and drainage. Leukocytosis improved #2 hypovolemic hyponatremia: Secondary to sepsis improved now probably IV fluids can be discontinued secondary to hyperchloremia #3 acute renal failure: Improved now #4 hyperchloremia due to IV fluids which are being discontinued at this time. #5 hyperkalemia due to hemolysis, potassium is normal today
--- NOTE | 2016-11-18 22:22 | PN ---
PROGRESS NOTE DATE OF SERVICE: 11/18/2016. REASON FOR FOLLOWUP: Right axillae and left groin MRSA infection. INTERVAL HISTORY: The patient is afebrile, has been breathing comfortably. Denies any chest pain, shortness of breath or cough. No abdominal pain. Pain to the left groin and the axillary area has improved. EXAMINATION: Blood pressure 136/73 with a pulse of 61, temperature 98.6. He is 98% on room air. GENERAL DESCRIPTION: A middle-aged male lying in bed in no distress. RESPIRATORY SYSTEM: Unlabored breathing. Clear to auscultation anteriorly. HEART: S1, S2. Regular rate and rhythm. ABDOMEN: Soft. No tenderness. Left groin and axillary wounds are currently dressed. Overall swelling and redness improved. LABS: BUN of 15, creatinine 0.81, potassium is 4.6. DIAGNOSTIC IMPRESSION AND PLAN: Patient with methicillin-resistant Staphylococcus aureus in left groin and right axillary area abscess, status post drainage. The patient seems to be showing clinical improvement. If the patient continues to improve and his potassium remains stable, I want him to finish therapy with p.o. Bactrim DS 1 twice a day for 2 weeks with close outpatient followup. MMODL / IJN: [id number] /
[2016-11-19] MEDS: HYDROmorphone 1 MG/ML 1 ML SYRINGE IVP PRN ×3 (02:00→10:59)
[2016-11-19] MEDS: HYDROcodone/APAP 7.5-325MG 1 EACH TAB PO PRN ×3 (03:03→14:49)
[2016-11-19] MEDS: VANCOMYCIN 1,000 MG in SODIUM CHLORIDE 0.9% 250 ML IVPB SCH (06:57)
[2016-11-19] MEDS: FAMOTIDINE 20 MG TAB PO SCH (08:01)
[2016-11-19] MEDS: LORazepam 0.5 MG TAB PO PRN (09:30)
[2016-11-19 10:10] LABS: Anion Gap 7 mmol/L; Basophils % (A) 0 %; Blood Urea Nitrogen 14 mg/dL (9-20); CH 29.6; CHCM 31.6; Calcium 8.3 mg/dL (8.4-10.2); Carbon Dioxide 29 mmol/L (22-30); Chloride 104 mmol/L (98-107); Eosinophils # (A) 0.2 k/uL (0-0.7); Eosinophils % (A) 3 %; Glucose 101 mg/dL (74-99); HCT 37.3 % (39.0-53.0); HDW 2.28; HGB 11.8 gm/dL (13.0-17.5); Luc # (Auto) 0.15; Luc % (Auto) 2; Lymphocytes # (A) 1.1 k/uL (1.0-4.8); Lymphocytes % (A) 15 %; MCH 29.8 pg (25.0-35.0); MCHC 31.6 g/dL (31.0-37.0); MCV 94.4 fL (80.0-100.0); Mean Platelet Volume 7.1; Monocytes # (A) 0.4 k/uL (0-1.0); Monocytes % (A) 6 %; Neutrophils # (A) 5.3 k/uL (1.3-7.7); Neutrophils % (A) 73 %; Non-African American GFR(MDRD) >60 (>60 ml/min/1.73 sqM); RBC 3.95 m/uL (4.30-5.90); RDW 13.7 % (11.5-15.5); Sodium 140 mmol/L (137-145); WBC 7.3 k/uL (3.8-10.6)
[2016-11-19 10:15] LABS: Potassium 4.6 mmol/L (3.5-5.1)
[2016-11-19 10:42] LABS: ALT 26 U/L (21-72); AST 33 U/L (17-59); Alkaline Phosphatase 79 U/L (38-126); Total Bilirubin 0.3 mg/dL (0.2-1.3); Total Protein 5.7 g/dL (6.3-8.2)
--- NOTE | 2016-11-19 11:25 | PN ---
PROGRESS NOTE DATE OF SERVICE: 11/19/2016 REASON FOR FOLLOWUP: Left groin and right axilla MRSA abscess and cellulitis. INTERVAL HISTORY: The patient is afebrile. He is feeling better. Overall pain is currently controlled. The patient denies any chest pain, shortness of breath or cough. No abdominal pain or any diarrhea. PHYSICAL EXAMINATION: Blood pressure is 122/81 with a pulse of 86, temperature of 98. He is 97% on room air. General description is a middle-aged male lying in bed in no distress. RESPIRATORY SYSTEM: Unlabored breathing, clear to auscultation anteriorly. HEART: S1, S2. Regular rate and rhythm. ABDOMEN: Soft, no tenderness. Left groin wound looks clean, surrounding swelling and redness has improved. Right axilla wound is also smaller in size with surround swelling and redness. LABS: Hemoglobin is 11.8, white count is 7.3, creatinine is 0.83, the potassium is 4.6. DIAGNOSTIC IMPRESSION AND PLAN: Patient with left groin and right axilla methicillin-resistant Staphylococcus aureus abscess, status post drainage of these abscesses. The patient did show overall improvement with vancomycin. He will be able to finish therapy with Bactrim DS 1 twice a day for 10 days. Local wound care with Aquacel Silver: Will follow. MMODL / IJN: [id number] /
[2016-11-19 13:23] VITALS: BMI 24.9
[2016-11-19 14:53] VITALS: BP 128/76; PULSE 69; RESP 18; TEMP 98.4
--- NOTE | 2016-11-19 18:48 | P.DS ---
Providers Date of admission: 11/13/16 20:10 Expected date of discharge: 11/19/16 Attending physician: Buster Spain Consults: 11/13/16 20:05 Consult Physician Stat Consulting Provider: Monroe Roth Consult Reason/Comments: Thigh abscess Do you want consulting provider notified?: Yes 11/14/16 13:24 Consult Physician Routine Consulting Provider: Choco Castellanos Consult Reason/Comments: Inguinal abscess Do you want consulting provider notified?: Yes Primary care physician: Stated None Dr. Lazo Hospital Course: Final Diagnoses: #1 sepsis, severe: Secondary to left thigh/groin and right axillary MRSA abscess,cellulitis, status post incision and drainage. #2 hypovolemic hyponatremia: Secondary to sepsis resolved with IV fluids #3 acute renal failure, resolved Hospital course :this is a 36-year-old gentleman admitted for abscess in the left thigh area as well as right axillary abscess. Evaluated by both surgery and infectious disease. S/P I/D. local wound care with Aquacell Silver. Maintained on IV antibiotics, vancomycin. Significant clinical improvement. Patient has been cleared for discharge by all consults. Patient is being discharged home in a stable condition with guarded prognosis. The impression and plan of care has been dictated as directed. : I performed a history and examination of this patient, discussed the same with the dictator. I agree with the dictator's note ,documented as a scribe. Any additional findings or plans will be noted. Patient Condition at Discharge: Stable Plan - Discharge Summary New Discharge Prescriptions: New HYDROcodone/APAP 7.5-325MG [[place] 7.5-325] 1 tab PO Q4H PRN #20 tab PRN Reason: Pain Sulfamethox-Tmp 800-160Mg [Bactrim DS 800-160 mg] 1 tab PO Q12HR #20 tab Famotidine [Pepcid] 20 mg PO BID #60 tab Discontinued Ibuprofen [Motrin] 600 mg PO Q6HR PRN PRN Reason: Pain Discharge Medication List HYDROcodone/APAP 7.5-325MG [[place] 7.5-325] 1 tab PO Q4H PRN #20 tab 11/16/16 [Rx ] Famotidine [Pepcid] 20 mg PO BID #60 tab 11/19/16 [Rx] Sulfamethox-Tmp 800-160Mg [Bactrim DS 800-160 mg] 1 tab PO Q12HR #20 tab [Rx] Follow up Appointment(s)/Referral(s): Elan Lazo MD [STAFF PHYSICIAN] - 1 Week (client will make own appointment) Choco Castellanos MD [STAFF PHYSICIAN] - 11/25/16 2:30 pm Ambulatory/Diagnostic Orders: Complete Blood Count w/diff [LAB.AMB] Time Frame: 3 Days, Location: Determined By Patient Patient Instructions/Handouts: How to Stop Smoking (DC), MRSA (Methicillin Resistant Staphylococcus Aureus) (DC) Activity/Diet/Wound Care/Special Instructions: Wound care & antibx as per ID Crutches ordered through [facility]: #[phone] Care Plan Goals (MU): WOUND CARE: Wash both hands to begin dressing change and find a clean uncluttered area of the house to do the dressing change. Pack aquacel rope into right armpit and left groin wound. cover packing with 4x4 gauze and secure in place with paper tape. Change dressing daily. Reinforce dressing with more gauze if dressing becomes saturated with drainage. Discharge Disposition: HOME SELF-CARE
[2016-11-20] MEDS ORDERED: VANCOMYCIN TROUGH DUE 1 EACH MISC MISCELLANE ONE (06:00)
== END 2016-11-19 15:24 | disposition home or self-care (01) | DRG 872 ==
LOC: EC 17:59 → 4MS4W 20:10
PROVIDERS: ADMIT Hospitalist; ATTEND Hospitalist
PROC: 0X940ZX Drainage of Right Axilla, Open Approach, Diagnostic (ICD-10-PCS; principal; 2016-11-15)
PROC: 0H9JXZX Drainage of Left Upper Leg Skin, External Approach, Diagnostic (ICD-10-PCS; 2016-11-15)
DX: A41.9 Sepsis, unspecified organism (principal); N17.9 Acute kidney failure, unspecified; E87.8 Other disorders of electrolyte and fluid balance, not elsewhere classified; E87.1 Hypo-osmolality and hyponatremia; L03.116 Cellulitis of left lower limb; L03.111 Cellulitis of right axilla; L02.411 Cutaneous abscess of right axilla; L02.214 Cutaneous abscess of groin; R65.20 Severe sepsis without septic shock; B95.62 Methicillin resistant Staphylococcus aureus infection as the cause of diseases classified elsewhere; F17.200 Nicotine dependence, unspecified, uncomplicated; F41.9 Anxiety disorder, unspecified; E87.5 Hyperkalemia; Z79.1 Long term (current) use of non-steroidal anti-inflammatories (NSAID); Z71.6 Tobacco abuse counseling
CPT/HCPCS: 36415; 72193; 80048; 80053; 80202; 81003; 83605; 84132; 85025; 85027; 87040; 87070; 87075; 87077; 87086; 87186; 87205; 96361; 96365; 96375; 99284

== ENCOUNTER 2017-11-24 19:21 | Emergency (ER) | payer OTHER ==
[2017-11-24 19:28] VITALS: BP 134/93; RESP 16; TEMP 98.1
--- NOTE | 2017-11-24 19:38 | ED ---
Overdose HPI - General Chief Complaint: Overdose Stated Complaint: Overdose Time Seen by Provider: 11/24/17 19:22 Source: patient, EMS, RN notes reviewed Mode of arrival: EMS Limitations: no limitations - History of Present Illness Initial Comments: This is a 37-year-old male who presents to the emergency department with chief complaint of overdose. 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 He states that tonight he was hanging out with friends who were using heroin and he relapsed. EMS reports that patient was barely breathing when fire department arrived to the scene. Patient was given 2 of Narcan nasally and 2 intravenous. At this time, patient states that he feels well. Denies chest pain or shortness of breath, abdominal pain, nausea or vomiting, dizziness or headache. Patient states he is ready to be discharged home. - Related Data Home Medications Medication Instructions Recorded Confirmed No Known Home Medications 11/24/17 11/24/17 Allergies Allergy/AdvReac Type Severity Reaction Status Date / Time No Known Allergies Allergy Verified 11/24/17 19:36 Review of Systems ROS Statement: Those systems with pertinent positive or pertinent negative responses have been documented in the HPI. ROS Other: All systems not noted in ROS Statement are negative. Past Medical History Past Medical History: No Reported History Additional Past Medical History / Comment(s): CURRENT R THUMB FRACTURE IN A CAST. History of Any Multi-Drug Resistant Organisms: MRSA Date of last positivie culture/infection: 11/14/16 MDRO Source:: AXILLA,THIGH Past Surgical History: No Surgical Hx Reported Past Anesthesia/Blood Transfusion Reactions: Unable to Obtain Additional Past Anesthesia/Blood Transfusion Reaction / Comment(s): PT HAS NEVER HAD SURGERY. Past Psychological History: Anxiety Smoking Status: Current every day smoker - Past Family History Father History Unknown: Yes Additional Family Medical History / Comment(s): FATHER IN A MVA Mother History Unknown: Yes Additional Family Medical History / Comment(s): MOTHER IN A MVA. General Exam - General Exam Comments Initial Comments: General: Awake and alert, well-developed; in no apparent distress. HEENT: Head atraumatic, normocephalic. Pupils are equal, round and reactive to light. Extraocular movements intact. Oropharynx moist without erythema or exudate. Neck: Supple. Normal ROM. Cardiovascular: Regular rhythm. Tachycardia. No murmurs, rubs or gallops. Chest symmetrical. Respiratory: Lungs clear to auscultation bilaterally. No wheezes, rales or rhonchi. Normal respiratory effort with no use of accessory muscles. Musculoskeletal: Normal ROM, no tenderness bilateral upper and lower extremities. Ambulating normally. Skin: [place], warm and dry without rashes or lesions. Neurological: Alert and oriented x3. CN II-XII grossly intact. Speech is fluent and answers are appropriate. No focal neuro deficits. Psychiatric: Melancholic. Forthcoming with history. Course Vital Signs 11/24/17 19:22 Temperature 98.1 F Pulse Rate 103 H Respiratory 16 Rate Blood Pressure 134/93 O2 Sat by Pulse 97 Oximetry Medical Decision Making - Medical Decision Making This is a 37-year-old male who presents to the emergency department with chief complaint of overdose. Patient reports accidentally overdosing on heroin. He denies any other drug use other than Neurontin. Denies alcohol, benzos, Tylenol products or other opiates. Patient was given 2 of Narcan intravenously and 2 of Narcan nasally. Patient states he feels well. He would like to be discharged home. Case discussed with attending physician, Dr. Muñoz. Patient is stable so will be discharged home at this time. Vital signs are stable and patient is in no acute distress. Heart rate upon discharge is in the 90s. Disposition Clinical Impression: Accidental heroin overdose Disposition: HOME SELF-CARE Condition: Good Instructions: Adult Overdose (ED) Additional Instructions: Please follow up with primary care provider within 1-2 days. Return to emergency department if symptoms should worsen or any concerns arise. Is patient prescribed a controlled substance at d/c from ED?: No Referrals: None,Stated [Primary Care Provider] - 1-2 days Time of Disposition: 19:44
[2017-11-24 19:50] VITALS: PULSE 87
== END 2017-11-24 19:52 | disposition home or self-care (01) ==
LOC: EC 19:21
DX: T40.1X1A Poisoning by heroin, accidental (unintentional), initial encounter (principal); F17.200 Nicotine dependence, unspecified, uncomplicated; Z86.14 Personal history of Methicillin resistant Staphylococcus aureus infection
CPT/HCPCS: 99284

== ENCOUNTER 2017-12-01 10:10 | Emergency (ER) | payer OTHER ==
[2017-12-01] MEDS ORDERED: ONDANSETRON 4 MG/2 ML VIAL IVP STA (10:25)
--- NOTE | 2017-12-01 10:31 | ED ---
Overdose HPI - General Chief Complaint: Overdose Stated Complaint: overdose Time Seen by Provider: 12/01/17 10:18 Source: patient, EMS, RN notes reviewed Mode of arrival: EMS Limitations: no limitations - History of Present Illness Initial Comments: This is a 37-year-old male presents emergency department via EMS for an overdose. Patient reportedly relapsed on his heroin abuse states that he used a half a pack of heroin states that he became unconscious and friends called 911. Patient does have a long history of drug abuse. Patient has no complaint this time. Patient states he is a retired but he states he's been up all night long. Patient denies chest pain, shortness breath, vomiting, diarrhea, fever, chills - Related Data Home Medications Medication Instructions Recorded Confirmed No Known Home Medications 11/24/17 11/24/17 Allergies Allergy/AdvReac Type Severity Reaction Status Date / Time No Known Allergies Allergy Verified 11/24/17 19:36 Review of Systems ROS Statement: Those systems with pertinent positive or pertinent negative responses have been documented in the HPI. ROS Other: All systems not noted in ROS Statement are negative. Past Medical History Past Medical History: No Reported History Additional Past Medical History / Comment(s): CURRENT R THUMB FRACTURE IN A CAST. History of Any Multi-Drug Resistant Organisms: MRSA Date of last positivie culture/infection: 11/14/16 MDRO Source:: AXILLA,THIGH Past Surgical History: No Surgical Hx Reported Past Anesthesia/Blood Transfusion Reactions: Unable to Obtain Additional Past Anesthesia/Blood Transfusion Reaction / Comment(s): PT HAS NEVER HAD SURGERY. Past Psychological History: Anxiety Smoking Status: Current every day smoker Past Alcohol Use History: Occasional Past Drug Use History: Heroin, Marijuana - Past Family History Father History Unknown: Yes Additional Family Medical History / Comment(s): FATHER IN A MVA Mother History Unknown: Yes Additional Family Medical History / Comment(s): MOTHER IN A MVA. General Exam Limitations: no limitations General appearance: alert, in no apparent distress Head exam: Present: atraumatic, normocephalic, normal inspection Neck exam: Present: normal inspection. Absent: tenderness, meningismus, lymphadenopathy Respiratory exam: Present: normal lung sounds bilaterally. Absent: respiratory distress, wheezes, rales, rhonchi, stridor Cardiovascular Exam: Present: regular rate, normal rhythm, normal heart sounds. Absent: systolic murmur, diastolic murmur, rubs, gallop, clicks GI/Abdominal exam: Present: soft, normal bowel sounds. Absent: distended, tenderness, guarding, rebound, rigid Neurological exam: Present: alert, oriented X3, CN II-XII intact, reflexes normal. Absent: motor sensory deficit Skin exam: Present: warm, dry, intact, normal color. Absent: rash Course Vital Signs 12/01/17 10:18 Temperature 98.2 F Pulse Rate 91 Respiratory 17 Rate Blood Pressure 129/92 O2 Sat by Pulse 94 L Oximetry Medical Decision Making - Medical Decision Making 37-year-old male presented for opiate overdose. Patient is awake alert and oriented 4. Patient will be discharged at this time. Patient is advised to call NA return for any worsening symptoms. Disposition Clinical Impression: Accidental heroin overdose Disposition: HOME SELF-CARE Condition: Stable Instructions: Opioid Use Disorder (ED) Additional Instructions: Please return to the Emergency Department if symptoms worsen or any other concerns. Is patient prescribed a controlled substance at d/c from ED?: No Referrals: None,Stated [Primary Care Provider] - 1-2 days Time of Disposition: 10:57
[2017-12-01 11:01] VITALS: BP 127/88; PULSE 97; RESP 18; TEMP 98.7
== END 2017-12-01 11:01 | disposition home or self-care (01) ==
LOC: EC 10:10
DX: T40.1X1A Poisoning by heroin, accidental (unintentional), initial encounter (principal); F17.200 Nicotine dependence, unspecified, uncomplicated; Z86.14 Personal history of Methicillin resistant Staphylococcus aureus infection
CPT/HCPCS: 99284; 96374; J2405

== ENCOUNTER 2018-02-18 00:52 | Observation (INO) | payer OTHER ==
[2018-02-18] MEDS ORDERED: VANCOMYCIN IV PER PHARMACY 1 EACH MISC MISCELLANE PRN (03:46)
[2018-02-18] MEDS ORDERED: AMPICILLIN-SULBACTAM 3 GM in SODIUM CHLORIDE 0.9% 100 ML IVPB STA (03:46)
--- NOTE | 2018-02-18 03:51 | ED ---
Extremity Problem HPI - General Chief complaint: Extremity Problem,Nontraumatic Stated complaint: Hand swelling Time Seen by Provider: 02/18/18 02:24 Source: patient Mode of arrival: ambulatory Limitations: no limitations - History of Present Illness Initial comments: This patient is a 37-year-old man who presents to be evaluated for left hand pain and swelling. He had noticed it starting yesterday at the dorsum of his left hand. Over the course of the past day has gotten progressively larger and more tender. The patient relates she has had similar infections, he states that he had MRSA of the left leg that almost resulted in an amputation. The patient has not noted any systemic symptoms. No fever or chills. No chest pain , dyspnea, diaphoresis or palpitations. MD Complaint: extremity pain, extremity swelling Onset/Timin -: days(s) Location: left, upper extremity History of Same: Yes Quality: aching Consistency: constant Improves with: nothing Worsens with: nothing - Related Data Home Medications Medication Instructions Recorded Confirmed No Known Home Medications 11/24/17 11/24/17 Allergies Allergy/AdvReac Type Severity Reaction Status Date / Time No Known Allergies Allergy Verified 11/24/17 19:36 Review of Systems ROS Statement: Those systems with pertinent positive or pertinent negative responses have been documented in the HPI. ROS Other: All systems not noted in ROS Statement are negative. Constitutional: Denies: fever, chills, weakness Respiratory: Denies: cough, dyspnea Cardiovascular: Denies: chest pain, palpitations Gastrointestinal: Denies: abdominal pain, vomiting Skin: Reports: as per HPI, change in color Neurological: Denies: headache, weakness, numbness, paresthesias Past Medical History Past Medical History: No Reported History Additional Past Medical History / Comment(s): CURRENT R THUMB FRACTURE IN A CAST. History of Any Multi-Drug Resistant Organisms: MRSA Date of last positivie culture/infection: 11/2017 MDRO Source:: AXILLA,THIGH Past Surgical History: No Surgical Hx Reported Past Anesthesia/Blood Transfusion Reactions: Unable to Obtain Additional Past Anesthesia/Blood Transfusion Reaction / Comment(s): PT HAS NEVER HAD SURGERY. Past Psychological History: Anxiety Smoking Status: Current every day smoker Past Alcohol Use History: Occasional Past Drug Use History: Heroin, Marijuana - Past Family History Father History Unknown: Yes Additional Family Medical History / Comment(s): FATHER IN A MVA Mother History Unknown: Yes Additional Family Medical History / Comment(s): MOTHER IN A MVA. General Exam Limitations: no limitations General appearance: alert, in no apparent distress ENT exam: Present: normal oropharynx Extremities exam: Present: full ROM, tenderness Left Shoulder Exam: Present: normal inspection, full ROM. Absent: tenderness Upper Arm exam: Present: normal inspection, full ROM. Absent: tenderness Elbow exam: Present: normal inspection, full ROM. Absent: tenderness Forearm Wrist exam: Present: normal inspection, full ROM Hand Wrist exam: Present: full ROM, tenderness, swelling. Absent: abrasion, laceration, ecchymosis Neurosensory exam: Present: radial nerve intact, ulnar nerve intact, median nerve intact Vascular: Present: normal capillary refill. Absent: pulse deficit radial art, pulse deficit ulnar art Skin exam: Present: warm, dry, intact, erythema (Dorsum of left hand. There is soft tissue swelling and tenderness. I am not able to find a discrete area of fluctuance which appears ready for drainage.) Course Vital Signs 02/18/18 00:59 Temperature 98.8 F Pulse Rate 77 Respiratory 16 Rate Blood Pressure 125/78 O2 Sat by Pulse 99 Oximetry Medical Decision Making - Lab Data Result diagrams: 02/18/18 04:10 02/18/18 04:10 Lab Results 02/18/18 02/18/18 Range/Units 04:10 04:10 WBC 5.8 (3.8-10.6) k/uL RBC 4.22 L (4.30-5.90) m/uL Hgb 13.2 (13.0-17.5) gm/dL Hct 39.0 (39.0-53.0) % MCV 92.4 (80.0-100.0) fL MCH 31.3 (25.0-35.0) pg MCHC 33.9 (31.0-37.0) g/dL RDW 11.9 (11.5-15.5) % Plt Count 157 (150-450) k/uL Neutrophils % 61 % Lymphocytes % 26 % Monocytes % 6 % Eosinophils % 2 % Basophils % 0 % Neutrophils # 3.6 (1.3-7.7) k/uL Lymphocytes # 1.5 (1.0-4.8) k/uL Monocytes # 0.4 (0-1.0) k/uL Eosinophils # 0.1 (0-0.7) k/uL Basophils # 0.0 (0-0.2) k/uL Sodium 140 (137-145) mmol/L Potassium 4.0 (3.5-5.1) mmol/L Chloride 106 (98-107) mmol/L Carbon Dioxide 28 (22-30) mmol/L Anion Gap 6 mmol/L BUN 19 (9-20) mg/dL Creatinine 0.80 (0.66-1.25) mg/dL Est GFR (CKD-EPI)AfAm >90 (>60 ml/min/1.73 sqM) Est GFR (CKD-EPI)NonAf >90 (>60 ml/min/1.73 sqM) Glucose 90 (74-99) mg/dL Calcium 8.8 (8.4-10.2) mg/dL C-Reactive Protein 20.7 H (<10.0) mg/L Disposition Clinical Impression: Cellulitis Disposition: ADMITTED IP TO THIS HOSP Condition: Fair Is patient prescribed a controlled substance at d/c from ED?: No Referrals: None,Stated [Primary Care Provider] - 1-2 days
[2018-02-18] MEDS ORDERED: VANCOMYCIN 1,250 MG in SODIUM CHLORIDE 0.9% 250 ML IVPB ONE (04:00)
[2018-02-18 04:34] LABS: Basophils % (A) 0 %; Eosinophils # (A) 0.1 k/uL (0-0.7); Eosinophils % (A) 2 %; HGB 13.2 gm/dL (13.0-17.5); Lymphocytes # (A) 1.5 k/uL (1.0-4.8); Lymphocytes % (A) 26 %; MCH 31.3 pg (25.0-35.0); MCHC 33.9 g/dL (31.0-37.0); MCV 92.4 fL (80.0-100.0); Mean Platelet Volume 7.4; Monocytes # (A) 0.4 k/uL (0-1.0); Monocytes % (A) 6 %; Neutrophils # (A) 3.6 k/uL (1.3-7.7); Neutrophils % (A) 61 %; Platelet Count 157 k/uL (150-450); RBC 4.22 m/uL (4.30-5.90); RDW 11.9 % (11.5-15.5); WBC 5.8 k/uL (3.8-10.6)
[2018-02-18 04:52] LABS: Anion Gap 6 mmol/L; Blood Urea Nitrogen 19 mg/dL (9-20); C Reactive Protein 20.7 mg/L (<10.0); Calcium 8.8 mg/dL (8.4-10.2); Carbon Dioxide 28 mmol/L (22-30); Chloride 106 mmol/L (98-107); Glucose 90 mg/dL (74-99); Sodium 140 mmol/L (137-145)
[2018-02-18] MEDS ORDERED: SODIUM CHLORIDE 0.9% 1,000 ML IV ONE (05:16)
[2018-02-18] MEDS ORDERED: IBUPROFEN 600 MG TAB PO PRN (05:17)
[2018-02-18] MEDS ORDERED: AMPICILLIN-SULBACTAM 3 GM in SODIUM CHLORIDE 0.9% 100 ML IVPB SCH (10:00)
--- NOTE | 2018-02-18 13:49 | P.HPIM ---
History of Present Illness 37-year-old pleasant gentleman was admitted secondary to left hand swelling or redness. She doesn't have any obvious obvious abscess. 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 Patient denied any fever chills. Patient doesn't have any leukocytosis. Patient was started on Unasyn and vancomycin, Unasyn will be discussed in patient has history of MRSA in the past. Patient denied any pain behind the left elbow or left axilla. Review of Systems REVIEW OF SYSTEMS: CONSTITUTIONAL: No fever, no malaise, no fatigue. HEENT: No recent visual problems or hearing problems. Denied any sore throat. CARDIOVASCULAR: No chest pain, orthopnea, PND, no palpitations, no syncope. PULMONARY: No shortness of breath, no cough, no hemoptysis. GASTROINTESTINAL: No diarrhea, no nausea, no vomiting, no abdominal pain. NEUROLOGICAL: No headaches, no weakness, no numbness. HEMATOLOGICAL: Denies any bleeding or petechiae. GENITOURINARY: Denies any burning micturition, frequency, or urgency. MUSCULOSKELETAL/RHEUMATOLOGICAL: As mentioned in HPI ENDOCRINE: Denies any polyuria or polydipsia. The rest of the 14-point review of systems is negative. Past Medical History Past Medical History: No Reported History Additional Past Medical History / Comment(s): 2017 L thigh and R axillae abscees (MRSA), past R thumb fracture. History of Any Multi-Drug Resistant Organisms: MRSA Date of last positivie culture/infection: 11/2017 MDRO Source:: AXILLA,THIGH Past Surgical History: No Surgical Hx Reported Additional Past Surgical History / Comment(s): L thigh and R axillae I&D Past Anesthesia/Blood Transfusion Reactions: No Reported Reaction Additional Past Anesthesia/Blood Transfusion Reaction / Comment(s): PT HAS NEVER HAD SURGERY. Smoking Status: Current every day smoker - Past Family History Father History Unknown: Yes Additional Family Medical History / Comment(s): FATHER IN A MVA Mother History Unknown: Yes Additional Family Medical History / Comment(s): MOTHER IN A MVA. Medications and Allergies Home Medications Medication Instructions Recorded Confirmed Type No Known Home Medications 11/24/17 02/18/18 History Allergies Allergy/AdvReac Type Severity Reaction Status Date / Time No Known Allergies Allergy Verified 02/18/18 07:26 Physical Exam Vitals: Vital Signs Temp Pulse Resp BP Pulse Ox 02/18/18 13:39 98.8 F 67 18 110/75 97 02/18/18 13:30 67 18 110/75 97 02/18/18 10:04 77 18 106/69 97 02/18/18 00:59 98.8 F 77 16 125/78 99 Intake and Output 02/17/18 02/18/18 02/18/18 22:59 06:59 14:59 Other: Weight 70.307 kg PHYSICAL EXAMINATION: GENERAL: The patient is alert and oriented x3, not in any acute distress. Well developed, well nourished. HEENT: Pupils are round and equally reacting to light. EOMI. No scleral icterus. No conjunctival pallor. Normocephalic, atraumatic. No pharyngeal erythema. No thyromegaly. CARDIOVASCULAR: S1 and S2 present. No murmurs, rubs, or gallops. PULMONARY: Chest is clear to auscultation, no wheezing or crackles. ABDOMEN: Soft, nontender, nondistended, normoactive bowel sounds. No palpable organomegaly. MUSCULOSKELETAL: No joint swelling or deformity. EXTREMITIES: No cyanosis, clubbing, or pedal edema. Patient has significant swelling and redness in the left hand involving the whole hand. NEUROLOGICAL: Gross neurological examination did not reveal any focal deficits. SKIN: No rashes. Results CBC & Chem 7: 02/18/18 04:10 02/18/18 04:10 Labs: Abnormal Lab Results - Last 24 Hours (Table) 02/18/18 02/18/18 Range/Units 04:10 04:10 RBC 4.22 L (4.30-5.90) m/uL C-Reactive Protein 20.7 H (<10.0) mg/L Thrombosis Risk Factor Assmnt - Choose All That Apply Any of the Below Risk Factors Present?: Yes Each Factor Represents 1 point: Obesity (BMI >25) Other Risk Factors: No Other congenital or acquired thrombophilia - If yes, enter type in comment: No Thrombosis Risk Factor Assessment Total Risk Factor Score: 1 Thrombosis Risk Factor Assessment Level: Low Risk Assessment and Plan Plan: 1 cellulitis of the left hand: Patient will be started on vancomycin because of his history of MRSA in the past. Patient will continued on IV fluids -Nicotine abuse: Counseling was provided -History of marijuana use on along with previous history of IV drug use will obtain hepatitis panel. Infectious disease was consulted. -Pain management with nonsteroidal anti-inflammatories patient will need pharmacologic GI prophylaxis, early ambulation as due to prophylaxis
--- NOTE | 2018-02-18 15:53 | P.CNOR ---
<EriclindaAna Cristina J - Last Filed: 02/18/18 16:09> History of Present Illness [facility] Consult date: 02/18/18 Consult reason: other (Right hand infection) History of present illness: The patient is a 37-year-old male who presented to the emergency department at [facility] early this morning for complaints of left hand pain and swelling. He states that the swelling started on Thursday and has progressively worsened. The swelling first started on the mid dorsal aspect of the hand and now has spread to approximately mid forearm. He denies any recent injury to the hand or previous surgeries. The patient has a history of MRSA wounds in the left thigh and right axilla in November 2016. He denies fever, chills, rigors, shortness breath, chest pain, and abdominal pain. 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 He is eager to get back to work as soon as possible. The patient was started on vancomycin and Unasyn and admitted for further evaluation and treatment. Infectious disease has been consulted. He denies current IV drug use. Review of Systems Constitutional: Denies chills, Denies fatigue, Denies fever Cardiovascular: Denies shortness of breath Respiratory: Denies cough Gastrointestinal: Denies diarrhea, Denies nausea, Denies vomiting Musculoskeletal: left: hand pain, hand stiffness, hand swelling Integumentary: Reports wounds (MRSA wounds to the right axilla and left thigh in 2016) Past Medical History Past Medical History: No Reported History Additional Past Medical History / Comment(s): 2017 L thigh and R axillae abscees (MRSA), past R thumb fracture. History of Any Multi-Drug Resistant Organisms: MRSA Year Discovered:: 11/2017 MDRO Source:: AXILLA,THIGH Past Surgical History: No Surgical Hx Reported Additional Past Surgical History / Comment(s): L thigh and R axillae I&D Past Anesthesia/Blood Transfusion Reactions: No Reported Reaction Additional Past Anesthesia/Blood Transfusion Reaction / Comm: PT HAS NEVER HAD SURGERY. Smoking Status: Current every day smoker - Past Family History Father History Unknown: Yes Additional Family Medical History / Comment(s): FATHER IN A MVA Mother History Unknown: Yes Additional Family Medical History / Comment(s): MOTHER IN A MVA. Medications and Allergies Home Medications Medication Instructions Recorded Confirmed Type No Known Home Medications 11/24/17 02/18/18 History Allergies Allergy/AdvReac Type Severity Reaction Status Date / Time No Known Allergies Allergy Verified 02/18/18 07:26 Physical Examination The patient is a 37-year-old male who is in no acute distress. He is alert and oriented 3. Exam of the left hand reveals diffuse swelling to the entire hand and wrist extending into the mid forearm. There is mild erythema present. There is no proximal red streaking noted. There are no open wounds or obvious abscess is present. There is a healing abrasion to the radial aspect of the wrist. There is limited range of motion of all of his fingers due to stiffness and swelling. There is point tenderness over the mid dorsal hand and no other tenderness noted. All flexor and extensor tendons appear to be intact. Neurological and circulatory status is intact. Capillary refill less than 2 seconds. Results - Labs Labs: Abnormal Lab Results - Last 24 Hours (Table) 02/18/18 02/18/18 Range/Units 04:10 04:10 RBC 4.22 L (4.30-5.90) m/uL C-Reactive Protein 20.7 H (<10.0) mg/L H & H 02/18/18 Range/Units 04:10 Hgb 13.2 (13.0-17.5) gm/dL Hct 39.0 (39.0-53.0) % Result Diagrams: 02/18/18 04:10 02/18/18 04:10 Assessment and Plan (1) Cellulitis of left hand Current Visit: Yes Status: Acute Code(s): L03.114 - CELLULITIS OF LEFT UPPER LIMB SNOMED Code(s): 46839267 (2) Hand pain, left Current Visit: Yes Status: Acute Code(s): M79.642 - PAIN IN LEFT HAND SNOMED Code(s): 71112574 Plan: The clinical findings were discussed with the patient. The case was also discussed at length with Dr. Rich. X-rays of the left hand have been ordered. Continue IV antibiotics. No surgical intervention is warranted at this time. Await further recommendations by infectious disease. We will continue to follow the patient closely and make further recommendations if his condition worsens or fails to improve. <Obed Rich - Last Filed: 02/18/18 18:11> History of Present Illness - HPI Consult reason: other (Left hand infection) Results - Labs Labs: Abnormal Lab Results - Last 24 Hours (Table) 02/18/18 02/18/18 Range/Units 04:10 04:10 RBC 4.22 L (4.30-5.90) m/uL C-Reactive Protein 20.7 H (<10.0) mg/L H & H 02/18/18 Range/Units 04:10 Hgb 13.2 (13.0-17.5) gm/dL Hct 39.0 (39.0-53.0) % Result Diagrams: 02/18/18 04:10 02/18/18 04:10 Assessment and Plan Plan: Patient was seen and examined by me as well. We reviewed the HPI and pertinent PMH/ROS. He states the symptoms have improved significantly since admission and starting IV abx -- "It looked much worse." Pain localized to the back of the left hand and doesn't extending into fingers or forearm. Exam: Focal soft tissue edema on the dorsal aspect of the left hand. No palpable subcutaneous crepitus or abscess. Very mild rubor & calor (appropriate for level of swelling) and not frankly erythematous. Only mild TTP over dorsal metacarpals. No pain with active and resisted digital extension or with midrange AROM of wrist. Demonstrates pain with extremes of motion when trying to make a full, composite fist. No TTP along extensors in forearm. Impression: Left hand cellulitis Nicotine addiction Plan: Mr. Smith appears to be making clinical improvements. No surgical intervention indicated at this time. Recommend continued IV abx and symptomatic treatment. At patient's request, may try warm compresses to increase circulation. Encouraged him to perform regular ROM of hand and fingers to improve the swelling and to decrease the risk of stiffness/adhesions. Also discussed the negative effects of cigarette smoking as it relates to MSK pathology and the risk of infection and compromised wound healing. I strongly encouraged him to quit (or at least cut down). He expressed understanding and agreed with the current plan. Thank you for allowing me to participate in the care of this patient. Obed Rich D.O.
--- NOTE | 2018-02-18 16:24 | XR ---
EXAMINATION TYPE: XR hand complete LT DATE OF EXAM: 02/18/2018 COMPARISON: NONE HISTORY: 37-year-old male with swelling for 4 days, and infection TECHNIQUE: 3 views FINDINGS: Soft tissue swelling diffusely affecting the hand and wrist. No underlying acute fracture, subluxatio n, or dislocation. No periostitis or osteolysis. IMPRESSION: Diffuse soft tissue swelling without acute osseous abnormality seen.
[2018-02-18] MEDS: VANCOMYCIN 1,250 MG in SODIUM CHLORIDE 0.9% 250 ML IVPB SCH (17:59)
[2018-02-18 18:53] LABS: Hepatitis A Antibody IgM Non-Reactive (Non-Reactive); Hepatitis B Core IgM Non-Reactive (Non-Reactive)
[2018-02-18] MEDS: FAMOTIDINE 20 MG TAB PO SCH (20:51)
[2018-02-19 06:19] VITALS: BP 109/68; PULSE 64; RESP 17; TEMP 97.8
[2018-02-19] MEDS: VANCOMYCIN 1,250 MG in SODIUM CHLORIDE 0.9% 250 ML IVPB SCH (06:25)
[2018-02-19] MEDS: FAMOTIDINE 20 MG TAB PO SCH (07:41)
[2018-02-19] MEDS ORDERED: DIPH,PERTUS(ACELL)TETVAC-LF 0.5 ML VIAL IM ONE (09:45)
[2018-02-19] MEDS ORDERED: DAPTOmycin 500 MG in SODIUM CHLORIDE 0.9% 50 ML IVPB SCH (11:00)
--- NOTE | 2018-02-19 14:13 | P.CONS ---
History of Present Illness - Reason for Consult Consult date: 02/19/18 Hand infection - History of Present Illness The patient is a 37-year-old male who presented to the emergency department at [facility] for evaluation of his left hand. 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 He states he has been applying antibiotic ointment without any improvement. He has not been treated with any antibiotics prior to coming to the hospital. He does have history of MRSA skin infections fall of last year to the axilla and thigh. Patient also has history of IV drug use and quit in August 2017. He used IV drugs for approximately 5 years and denies any further use. He states the swelling to his hand has gradually worsened since Thursday. He presented afebrile, white count 5.8, BUN 19 and creatinine 0.8. CRP 20.7. Hepatitis C virus IgG antibody was reactive. Blood cultures showing no growth. X-ray of the hand shows diffuse soft tissue swelling without acute osseous abnormality. Patient has been seen by orthopedics with no plan for surgical interventions. Patient does not recall his last tetanus update. He is currently on vancomycin but also received Unasyn in the ER. Review of Systems All systems: negative Constitutional: Denies anorexia, Denies chills, Denies fatigue, Denies fever, Denies poor appetite, Denies weakness Eyes: denies blurred vision, denies pain Ears, nose, mouth and throat: Denies dysphagia, Denies headache, Denies mouth pain, Denies sore throat, Denies vertigo Cardiovascular: Denies chest pain, Denies dyspnea on exertion, Denies edema, Denies leg edema, Denies lightheadedness, Denies shortness of breath, Denies syncope Respiratory: Denies cough, Denies cough with sputum, Denies dyspnea, Denies home oxygen, Denies wheezing Gastrointestinal: Denies abdominal pain, Denies diarrhea, Denies loss of appetite, Denies nausea, Denies vomiting Musculoskeletal: Denies frequent falls, Denies gait dysfunction, Denies muscle weakness, Denies myalgias Integumentary: Reports color changes, Reports darkening of skin, Reports wounds , Denies pruritus, Denies rash Neurological: Denies aphasia, Denies change in mentation, Denies change in speech, Denies gait dysfunction, Denies numbness, Denies weakness Psychiatric: Denies anxiety, Denies depression Endocrine: Denies fatigue, Denies weight change Past Medical History Past Medical History: No Reported History Additional Past Medical History / Comment(s): 2017 L thigh and R axillae abscees (MRSA), past R thumb fracture. History of Any Multi-Drug Resistant Organisms: MRSA Year Discovered:: 11/2017 MDRO Source:: AXILLA,THIGH Past Surgical History: No Surgical Hx Reported Additional Past Surgical History / Comment(s): L thigh and R axillae I&D Past Anesthesia/Blood Transfusion Reactions: No Reported Reaction Additional Past Anesthesia/Blood Transfusion Reaction / Comm: PT HAS NEVER HAD SURGERY. Smoking Status: Current every day smoker Additional Past Alcohol Use History / Comment(s): Patient is a smoker of a quarter to half pack per day for 15-20 years. He does smoke marijuana several times per week. 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 He denies any animal exposures. Patient does have history of IV drug use for 5 years and quit in August 2017. - Past Family History Father History Unknown: Yes Additional Family Medical History / Comment(s): FATHER IN A MVA Mother History Unknown: Yes Additional Family Medical History / Comment(s): MOTHER IN A MVA. Medications and Allergies Home Medications Medication Instructions Recorded Confirmed Type No Known Home Medications 11/24/17 02/18/18 History Allergies Allergy/AdvReac Type Severity Reaction Status Date / Time No Known Allergies Allergy Verified 02/18/18 07:26 Physical Exam Vitals: Vital Signs Temp Pulse Pulse Resp BP BP Pulse Ox 02/19/18 06:18 97.8 F 64 17 109/68 98 02/18/18 23:00 98.8 F 69 18 94/55 96 02/18/18 15:00 98.0 F 74 16 120/83 100 02/18/18 13:39 98.8 F 67 18 110/75 97 02/18/18 13:30 67 18 110/75 97 02/18/18 10:04 77 18 106/69 97 Intake and Output 02/18/18 02/19/18 02/19/18 22:59 06:59 14:59 Intake Total 200 Balance 200 Intake: Oral 200 Other: # Voids 1 1 Gen: This is a 37-year-old male resting in bed and appears to be comfortable and in no acute distress. HEENT: Head is atraumatic, normocephalic. Pupils equal, round. Sclerae is anicteric. NECK: Supple. No JVD. No lymphadenopathy. No thyromegaly. LUNGS: Clear to auscultation. No wheezes or rhonchi. No intercostal retractions. HEART: Regular rate and rhythm. No murmur. ABDOMEN: Soft. Bowel sounds are present. No masses. No tenderness. EXTREMITIES: No pedal edema. No calf tenderness. Left hand has diffuse swelling to the entire hand into the wrist and mid forearm. Mild erythema over the dorsal hand. There are small scratches noted throughout the hand including the palmar surface. Capillary refill immediate. NEUROLOGICAL: Patient is awake, alert and oriented x3. Cranial nerves 2 through 12 are grossly intact. Results Results: Laboratory Results WBC 5.8 k/uL (3.8-10.6) 02/18/18 04:10 RBC 4.22 m/uL (4.30-5.90) L 02/18/18 04:10 Hgb 13.2 gm/dL (13.0-17.5) 02/18/18 04:10 Hct 39.0 % (39.0-53.0) 02/18/18 04:10 MCV 92.4 fL (80.0-100.0) 02/18/18 04:10 MCH 31.3 pg (25.0-35.0) 02/18/18 04:10 MCHC 33.9 g/dL (31.0-37.0) 02/18/18 04:10 RDW 11.9 % (11.5-15.5) 02/18/18 04:10 Plt Count 157 k/uL (150-450) 02/18/18 04:10 Neutrophils % 61 % 02/18/18 04:10 Lymphocytes % 26 % 02/18/18 04:10 Monocytes % 6 % 02/18/18 04:10 Eosinophils % 2 % 02/18/18 04:10 Basophils % 0 % 02/18/18 04:10 Neutrophils # 3.6 k/uL (1.3-7.7) 02/18/18 04:10 Lymphocytes # 1.5 k/uL (1.0-4.8) 02/18/18 04:10 Monocytes # 0.4 k/uL (0-1.0) 02/18/18 04:10 Eosinophils # 0.1 k/uL (0-0.7) 02/18/18 04:10 Basophils # 0.0 k/uL (0-0.2) 02/18/18 04:10 Sodium 140 mmol/L (137-145) 02/18/18 04:10 Potassium 4.0 mmol/L (3.5-5.1) 02/18/18 04:10 Chloride 106 mmol/L (98-107) 02/18/18 04:10 Carbon Dioxide 28 mmol/L (22-30) 02/18/18 04:10 Anion Gap 6 mmol/L 02/18/18 04:10 BUN 19 mg/dL (9-20) 02/18/18 04:10 Creatinine 0.80 mg/dL (0.66-1.25) 02/18/18 04:10 Est GFR (CKD-EPI)AfAm >90 (>60 ml/min/1.73 sqM) 02/18/18 04:10 Est GFR (CKD-EPI)NonAf >90 (>60 ml/min/1.73 sqM) 02/18/18 04:10 Glucose 90 mg/dL (74-99) 02/18/18 04:10 Calcium 8.8 mg/dL (8.4-10.2) 02/18/18 04:10 C-Reactive Protein 20.7 mg/L (<10.0) H 02/18/18 04:10 Hepatitis A IgM Ab Non-Reactive (Non-Reactive) 02/18/18 04:10 Hep Bs Antigen Non-Reactive (Non-Reactive) 02/18/18 04:10 Hep B Core IgM Ab Non-Reactive (Non-Reactive) 02/18/18 04:10 Hep C IgG Ab Reactive (Non-Reactive) H 02/18/18 04:10 CBC & Chem 7: 02/18/18 04:10 02/18/18 04:10 Labs: Abnormal Lab Results - Last 24 Hours (Table) 02/18/18 Range/Units 04:10 Hep C IgG Ab Reactive H (Non-Reactive) Microbiology - Last 24 Hours (Table) 02/18/18 04:10 Blood Culture - Preliminary Blood No Growth after 24 hours Assessment and Plan Plan: This is a 37-year-old male patient presents hospital with most likely MRSA cellulitis of the left hand. Previous wound culture is positive for MRSA, susceptible to vancomycin with SAMAN of 2. He is currently in vancomycin which will be switched to daptomycin. Blood culture showing no growth. Continue supportive care. Local wound care will be addressed, elevate arm on 2 pillows. T dab will be updated. Further recommendations as patient progresses. The above dictated assessment and findings were discussed with Dr. Canas. The impression and plan of care have been directed as dictated. Rajani Bell nurse practitioner acting as scribe for Dr. Canas.
[2018-02-19] MEDS ORDERED: NICOTINE 14MG/24HR PATCH TRANSDERM SCH (14:45)
--- NOTE | 2018-02-19 21:45 | P.DS ---
Providers Date of admission: 02/18/18 05:16 Expected date of discharge: 02/19/18 Attending physician: Buster Nixon Consults: 02/18/18 13:45 Consult Physician Routine Consulting Provider: Ty Canas Consult Reason/Comments: hand infection Do you want consulting provider notified?: Yes 02/18/18 14:31 Consult Physician Routine Consulting Provider: Obed Rich Consult Reason/Comments: hand infection Do you want consulting provider notified?: Already Contacted Primary care physician: Stated None Hospital Course: Final Diagnoses: -cellulitis of the left hand -Nicotine abuse: Counseling was provided -History of marijuana use with previous history of IV drug use -Hepatitis C Hospital course: This is a 37-year-old pleasant gentleman was admitted secondary to left hand swelling or redness. She doesn't have any obvious obvious abscess. 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 Patient denied any fever chills. Patient doesn't have any leukocytosis. Patient was started on Unasyn and vancomycin, Unasyn will be discussed in patient has history of MRSA in the past. Patient denied any pain behind the left elbow or left axilla. Evaluated by infectious disease and orthopedics. Maintained on IV antibiotics, warm compresses. Significant clinical improvement. Cleared by both consults for discharge. Patient is being discharged home in a stable condition with guarded prognosis. EXAMINATION: GENERAL: The patient is alert and oriented x3, not in any acute distress. Well developed, well nourished. CARDIOVASCULAR: S1 and S2 present. No murmurs, rubs, or gallops. PULMONARY: Chest is clear to auscultation, no wheezing or crackles. ABDOMEN: Soft, nontender, nondistended, normoactive bowel sounds. No palpable organomegaly. EXTREMITIES: Decreased swelling and redness in the left hand. Decreased tenderness NEUROLOGICAL: Gross neurological examination did not reveal any focal deficits. The impression and plan of care has been dictated as directed. : I performed a history and examination of this patient, discussed the same with the dictator. I agree with the dictator's note ,documented as a scribe. Any additional findings or plans will be noted. Time taken: 35 minutes Patient Condition at Discharge: Stable Plan - Discharge Summary Discharge Rx Participant: No New Discharge Prescriptions: New Ibuprofen [Motrin] 600 mg PO Q6H PRN #20 tab PRN Reason: Pain Nicotine 14Mg/24Hr Patch [Habitrol] 1 patch TRANSDERM DAILY #30 patch Famotidine [Pepcid] 20 mg PO BID #30 tab Sulfamethox-Tmp 800-160Mg [Bactrim DS 800-160 mg] 1 tab PO Q12HR #14 tab Discharge Medication List Famotidine [Pepcid] 20 mg PO BID #30 tab 02/19/18 [Rx] Ibuprofen [Motrin] 600 mg PO Q6H PRN #20 tab 02/19/18 [Rx] Nicotine 14Mg/24Hr Patch [Habitrol] 1 patch TRANSDERM DAILY #30 patch 02/19/18 [ Rx] Sulfamethox-Tmp 800-160Mg [Bactrim DS 800-160 mg] 1 tab PO Q12HR #14 tab [Rx] Follow up Appointment(s)/Referral(s): Joshua Diaz MD [STAFF PHYSICIAN] - 03/23/18 8:15 am (Hepatitis C) Obed Rich DO [Medical Doctor] - As Needed Douglas Rubin MD [REFERRING] - 3 Days Ambulatory/Diagnostic Orders: Complete Blood Count w/diff [LAB.AMB] Time Frame: 3 Days, Location: None Selected Patient Instructions/Handouts: Cellulitis (DC) Activity/Diet/Wound Care/Special Instructions: Antibiotics as per infectious disease, Dr Canas to send sulfa antibiotic to pharmacy. Discharge/Stand Alone Forms: Work/School Release Discharge Disposition: HOME SELF-CARE
--- NOTE | 2018-02-19 21:49 | P.CON ---
Consult Note - . Consult date: 02/19/18 Assessment/Plan:: The patient is a 37-year-old male who presented to the emergency department at [facility] for evaluation of his left hand. 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 He states he has been applying antibiotic ointment without any improvement. He has not been treated with any antibiotics prior to coming to the hospital. He does have history of MRSA skin infections fall of last year to the axilla and thigh. Patient also has history of IV drug use and quit in August 2017. He used IV drugs for approximately 5 years and denies any further use. He states the swelling to his hand has gradually worsened since Thursday. He presented afebrile, white count 5.8, BUN 19 and creatinine 0.8. CRP 20.7. Hepatitis C virus IgG antibody was reactive. Blood cultures showing no growth. X-ray of the hand shows diffuse soft tissue swelling without acute osseous abnormality. Patient has been seen by orthopedics with no plan for surgical interventions. Patient does not recall his last tetanus update. He is currently on vancomycin but also received Unasyn in the ER. Please see the consult note is dictated by nurse practitioner Rickie Rajani Ray. 37-year-old male who has a history of injection drug use with cocaine relates last use was in August 2017. 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 Which had the sudden onset of swelling and pain to the dorsum of the left hand. Despite local care markedly worse and he presented to emergency center. Is no history of MRSA infection in the past. Did require surgical incision and drainage in the past. He has been seen by orthopedics and fortunately there is no abscess that requires incision and drainage at this time. Patient is actually much improved since coming the hospital with treatment with Unasyn and daptomycin. The prior MRSA was susceptible to sulfa, he has no ALLERGIES and constantly may be discharged home on oral sulfa and it's been sent to his pharmacy of choice. The hand is wrapped in suggest uses a cold pack on it a couple times a day to get the swelling down significant back to work by Thursday which is certainly likely given the lack of abscess and improving the cellulitic response. Suggested he wears work gloves when he is at work given the fact that he has that current environment employer should be providing him with gloves, and he should choose to wear them. I agree with evaluation, assessment and plan is dictated by nurse practitioner Mrs. Rajani Bell.
[2018-02-20] MEDS ORDERED: VANCOMYCIN TROUGH DUE 1 EACH MISC MISCELLANE ONE (05:00)
[2018-02-22 10:29] LABS: Hepatits C Virus RNA DETECTED (Not detected); LOG HCV IU/mL 6.14 (<1.08)
== END 2018-02-19 17:16 | disposition home or self-care (01) ==
LOC: EC 00:52 → 4MS4W 05:16
PROVIDERS: ADMIT Hospitalist; ATTEND Hospitalist
DX: L03.114 Cellulitis of left upper limb (principal); F17.210 Nicotine dependence, cigarettes, uncomplicated; F12.90 Cannabis use, unspecified, uncomplicated; F11.90 Opioid use, unspecified, uncomplicated; B19.20 Unspecified viral hepatitis C without hepatic coma; E66.9 Obesity, unspecified; Z23 Encounter for immunization; Z71.6 Tobacco abuse counseling; Z86.14 Personal history of Methicillin resistant Staphylococcus aureus infection; Z68.26 Body mass index [BMI] 26.0-26.9, adult
CPT/HCPCS: 96366 ×2; 96367; 90471; 96365; 99285; 36415; 87522; 80048; 80074; 85025; 86140; 87040; 73130; 90715; G0378 ×2; J3370 ×2; J0878; J0295